=== PATIENT | female | born 1965 | race Caucasian/White ===

== ENCOUNTER 2017-01-14 18:49 | Inpatient (IN) | payer BC, MEDICAID ==
[2017-01-14 22:51] LABS: URINE BLOOD (Dip) POC Trace-intact (NEGATIVE); URINE GLUCOSE (Dip) POC Negative (NEGATIVE); URINE KETONES (Dip) POC Negative (NEGATIVE); URINE LEUKOCYTE EST (Dip) POC Trace (NEGATIVE); URINE NITRITE (Dip) POC Negative (NEGATIVE); URINE TOTAL PROTEIN POC Negative (NEGATIVE)
[2017-01-14 23:06] LABS: ABNORMAL IP MESSAGE 1; HEMATOCRIT 25.2 % (37.0-47.0); HEMOGLOBIN 8.1 g/dl (12.0-16.0); MEAN CORPUSCULAR HEMOGLOBIN 29.5 pg (29.0-33.0); MEAN CORPUSCULAR HGB CONC 32.1 g/dl (32.0-37.0); MEAN CORPUSCULAR VOLUME 91.6 fl (82.0-101.0); MEAN PLATELET VOLUME 11.9 fl (7.4-10.4); PLATELET COUNT 699 10^3/UL (140-415); RED BLOOD COUNT 2.75 10^6/ul (4.20-5.40)
[2017-01-14 23:06] LABS: WHITE BLOOD COUNT 12.3 10^3/ul (4.8-10.8)
[2017-01-14 23:25] LABS: ADD MAN DIFF? YES; POSITIVE DIFF @See below
[2017-01-14 23:29] LABS: INR 1.02; PROTIME 13.5 Sec (11.9-14.9); PT RATIO 1.1
[2017-01-14 23:30] LABS: ALANINE AMINOTRANSFERASE 44 IU/L (13-69); ALBUMIN 3.3 g/dl (3.3-4.9); ALBUMIN/GLOBULIN RATIO 0.89; ALKALINE PHOSPHATASE 185 IU/L (42-121); ANION GAP 13 (8-16); ASPARTATE AMINO TRANSFERASE 47 IU/L (15-46); BLOOD UREA NITROGEN 42 mg/dl (7-20); CARBON DIOXIDE 33 mmol/L (21-31); CHLORIDE 99 mmol/L (97-110); CREATININE 3.15 mg/dl (0.44-1.00); GLUCOSE 101 mg/dl (70-220); PARTIAL THROMBOPLASTIN TIME 23.3 Sec (25.0-35.0); POTASSIUM 3.7 mmol/L (3.5-5.1); SODIUM 141 mmol/L (135-144)
[2017-01-14 23:32] LABS: BENZODIAZEPINES Negative (NEGATIVE)
[2017-01-14 23:35] LABS: ETHANOL < 10.0 mg/dl
[2017-01-14 23:38] LABS: AMPHETAMINE/METHAMPHETAMINE Negative (NEGATIVE)
[2017-01-14 23:41] LABS: CALCIUM 14.8 mg/dl (8.4-10.2)
[2017-01-14 23:42] LABS: BARBITURATES Negative (NEGATIVE); CANNABINOIDS Negative (NEGATIVE); COCAINE Negative (NEGATIVE)
[2017-01-14] MEDS: SOD CHLORIDE 0.9% 1,000 ML IV (23:43)
[2017-01-14 23:51] LABS: TROPONIN-I < 0.012 ng/ml (0.00-0.12)
[2017-01-14 23:58] LABS: OPIATES Positive (NEGATIVE)
[2017-01-15] MEDS: PAMIDRONATE 60 MG in SOD CHLORIDE 0.9% 500 ML IV (00:47)
[2017-01-15 00:52] LABS: ANISOCYTOSIS 2+ (0-0); BAND NEUTROPHILS #M 0.1 10^3/ul (0.0-0.6); BAND NEUTROPHILS % (M) 1 % (0-4); EOSINOPHILS % (M) 4 % (0-7); LYMPHOCYTES #M 1.2 10^3/ul (0.8-2.9); LYMPHOCYTES % (M) 10 % (15-51); MONOCYTE #M 1.1 10^3/ul (0.3-0.9); MONOCYTES % (M) 9 % (0-11); PLASMA CELLS #M 0.1 10^3/ul (0.0-0.0); PLASMAC%(M) 1 % (0); PLATELET ESTIMATE INCREASED; POIKILOCYTOSIS 1+ (0-0); POLYCHROMASIA 3+ (0-0); PROMYELOCYTES #M 0.1 10^3/ul (0-0); PROMYELOCYTES % (M) 1 % (0-0); SEG NEUT #M 9.2 10^3/ul (1.7-7.5); SEGMENTED NEUTROPHILS (M) % 75 % (39-77); SMUDGE%M 9 % (0-0)
[2017-01-15] MEDS: HYDROCODONE/APAP (10/325) TAB PO (02:26)
[2017-01-15] MEDS ORDERED: ALBUTEROL/IPRATROPIUM (NEB) 3 ML AMP HHN (03:30)
[2017-01-15] MEDS ORDERED: ACETAMINOPHEN 325 MG TAB PO (03:30)
[2017-01-15] MEDS ORDERED: HYDROmorphONE 1 MG/ML SYG IV (03:30)
[2017-01-15] MEDS ORDERED: HYDROCODONE/APAP (10/325) TAB PO (03:30)
[2017-01-15] MEDS ORDERED: NACL 0.9% 3 ML SYG IV (03:30)
[2017-01-15] MEDS: HYDROmorphONE 1 MG/ML SYG IV ×4 (04:10→17:29)
[2017-01-15] MEDS: SOD CHLORIDE 0.9% 1,000 ML IV ×4 (04:17→22:03)
[2017-01-15] MEDS: GABAPENTIN 100 MG CAP PO ×5 (05:35→21:34)
[2017-01-15 07:50] LABS: ADD UMIC YES; UR ASCORBIC ACID NEGATIVE (NEGATIVE); UR BILIRUBIN (Dip) NEGATIVE (NEGATIVE); UR BLOOD (Dip) NEGATIVE (NEGATIVE); UR CLARITY CLEAR (CLEAR); UR COLOR STRAW (YELLOW); UR GLUCOSE (Dip) NEGATIVE (NEGATIVE); UR KETONES (Dip) NEGATIVE (NEGATIVE); UR LEUKOCYTE ESTERASE (Dip) TRACE Leu/ul (NEGATIVE); UR NITRITE (Dip) NEGATIVE (NEGATIVE); UR RBC 1 /HPF (0-5); UR SPECIFIC GRAVITY (Dip) 1.005 (1.003-1.030); UR TOTAL PROTEIN (Dip) NEGATIVE (NEGATIVE); UR UROBILINOGEN (Dip) NEGATIVE (NEGATIVE); UR WBC 12 /HPF (0-5)
[2017-01-15] MEDS: DULOXETINE 30 MG CAP DR PO ×2 (08:38→21:33)
[2017-01-15] MEDS: MODAFINIL 200 MG TAB PO (08:39)
[2017-01-15] MEDS: INDOMETHACIN 50 MG PO ×2 (08:39→21:33)
[2017-01-15] MEDS: BACLOFEN 10 MG TAB PO ×4 (08:40→21:34)
[2017-01-15] MEDS ORDERED: CAPECITABINE 500 MG TAB PO (09:00)
[2017-01-15 09:40] LABS: ADD MAN DIFF? NO
[2017-01-15] MEDS: morphine (ER) 15 MG TAB PO ×3 (09:45→21:00)
[2017-01-15 09:50] LABS: ABNORMAL IP MESSAGE 1; BASOPHILS % 0.3 % (0.0-2.0); EOSINOPHILS # 0.6 10^3/ul (0.0-0.5); EOSINOPHILS % 5.1 % (0.0-7.0); HEMATOCRIT 24.1 % (37.0-47.0); HEMOGLOBIN 7.5 g/dl (12.0-16.0); LYMPHOCYTES # 2.4 10^3/ul (0.8-2.9); LYMPHOCYTES % 19.1 % (15.0-51.0); MEAN CORPUSCULAR HGB CONC 31.1 g/dl (32.0-37.0); MEAN CORPUSCULAR VOLUME 93.1 fl (82.0-101.0); MEAN PLATELET VOLUME 12.2 fl (7.4-10.4); MONOCYTE # 1.5 10^3/ul (0.3-0.9); MONOCYTES % 12.1 % (0.0-11.0); NEUTROPHIL # 7.7 10^3/ul (1.6-7.5); NEUTROPHILS % 61.6 % (39.0-77.0); PLATELET COUNT 599 10^3/UL (140-415); RED BLOOD COUNT 2.59 10^6/ul (4.20-5.40); RED CELL DISTRIBUTION WIDTH 16.2 % (11.5-14.5)
[2017-01-15 09:50] LABS: WHITE BLOOD COUNT 12.5 10^3/ul (4.8-10.8)
[2017-01-15 10:12] LABS: ALANINE AMINOTRANSFERASE 40 IU/L (13-69); ALBUMIN/GLOBULIN RATIO 0.85; ALKALINE PHOSPHATASE 167 IU/L (42-121); ANION GAP 13 (8-16); ASPARTATE AMINO TRANSFERASE 42 IU/L (15-46); BLOOD UREA NITROGEN 38 mg/dl (7-20); CARBON DIOXIDE 29 mmol/L (21-31); CHLORIDE 104 mmol/L (97-110); CREATININE 2.76 mg/dl (0.44-1.00); GLUCOSE 96 mg/dl (70-220); MAGNESIUM 1.7 mg/dl (1.7-2.5); POTASSIUM 3.6 mmol/L (3.5-5.1); SODIUM 142 mmol/L (135-144); TOTAL PROTEIN 6.5 g/dl (6.1-8.1)
[2017-01-15 10:17] LABS: CALCIUM 13.4 mg/dl (8.4-10.2)
[2017-01-15] MEDS: EXEMESTANE 25 MG TAB PO (11:15)
[2017-01-15 16:06] LABS: IMMEDIATE SPIN CROSSMATCH 1 2
[2017-01-15] MEDS: traZODone 50 MG TAB PO (21:34)
[2017-01-15] MEDS: ONDANSETRON 4 MG INJ IV (22:02)
[2017-01-16] MEDS: METOCLOPRAMIDE 10 MG INJ IV ×3 (00:55→23:25)
[2017-01-16] MEDS: GABAPENTIN 100 MG CAP PO ×6 (01:00→20:58)
[2017-01-16] MEDS: DIAZEPAM 5 MG TAB PO (01:20)
[2017-01-16] MEDS: LORAZEPAM 2 MG INJ IV (01:55)
[2017-01-16] MEDS ORDERED: ONDANSETRON 4 MG INJ IV (03:30)
[2017-01-16] MEDS: SOD CHLORIDE 0.9% 1,000 ML IV ×5 (05:34→20:53)
[2017-01-16 09:56] LABS: ADD MAN DIFF? NO
[2017-01-16 09:58] LABS: BASOPHILS % 0.3 % (0.0-2.0); EOSINOPHILS # 0.3 10^3/ul (0.0-0.5); EOSINOPHILS % 3.9 % (0.0-7.0); HEMATOCRIT 27.9 % (37.0-47.0); LYMPHOCYTES # 1.1 10^3/ul (0.8-2.9); LYMPHOCYTES % 13.1 % (15.0-51.0); MEAN CORPUSCULAR HEMOGLOBIN 29.8 pg (29.0-33.0); MEAN CORPUSCULAR HGB CONC 32.3 g/dl (32.0-37.0); MEAN CORPUSCULAR VOLUME 92.4 fl (82.0-101.0); MONOCYTE # 0.9 10^3/ul (0.3-0.9); MONOCYTES % 10.3 % (0.0-11.0); NEUTROPHIL # 6.1 10^3/ul (1.6-7.5); NEUTROPHILS % 70.1 % (39.0-77.0); NUCLEATED RED BLOOD CELLS% 0.2 /100WBC (0.0-0.0); PLATELET COUNT 600 10^3/UL (140-415); RED BLOOD COUNT 3.02 10^6/ul (4.20-5.40); RED CELL DISTRIBUTION WIDTH 16.1 % (11.5-14.5)
[2017-01-16 09:58] LABS: WHITE BLOOD COUNT 8.7 10^3/ul (4.8-10.8)
[2017-01-16] MEDS: BACLOFEN 10 MG TAB PO ×4 (10:14→20:57)
[2017-01-16] MEDS: DULOXETINE 30 MG CAP DR PO ×2 (10:14→20:56)
[2017-01-16] MEDS: INDOMETHACIN 50 MG PO ×2 (10:14→20:57)
[2017-01-16] MEDS: morphine (ER) 15 MG TAB PO ×3 (10:15→20:57)
[2017-01-16] MEDS: MODAFINIL 200 MG TAB PO (10:16)
[2017-01-16 10:19] LABS: ANION GAP 9 (8-16); BLOOD UREA NITROGEN 33 mg/dl (7-20); CALCIUM 12.7 mg/dl (8.4-10.2); CARBON DIOXIDE 29 mmol/L (21-31); CHLORIDE 107 mmol/L (97-110); CREATININE 2.18 mg/dl (0.44-1.00); GLUCOSE 89 mg/dl (70-220); MAGNESIUM 1.7 mg/dl (1.7-2.5); PHOSPHORUS 3.7 mg/dl (2.5-4.9); POTASSIUM 3.7 mmol/L (3.5-5.1); SODIUM 141 mmol/L (135-144)
[2017-01-16] MEDS: EXEMESTANE 25 MG TAB PO (10:41)
[2017-01-16 14:44] LABS: AADO2 Arterial 69.5 mmHg (7.0-24.0); Allen Test ACCEPTAB; Arterial COHb 0.2 % (0.0-3.0); Arterial Fraction of Oxyhgb 96.8 % (93.0-99.0); Arterial HCO3 26.8 mmol/L (22.0-26.0); Arterial MetHb 0 % (0.0-1.5); Arterial Total Hemglobin 11.3 g/dl (12.0-18.0); Arterial pCO2 42.9 mmhg (35-45); MODE NASAL CANNULA; Site Right Radial
[2017-01-16] MEDS: ONDANSETRON 4 MG INJ IV (17:11)
[2017-01-16] MEDS: HYDROmorphONE 0.5 MG/0.5 ML SYG IV (17:11)
[2017-01-16] MEDS: HYDROmorphONE 1 MG/ML SYG IV ×3 (19:14→23:25)
[2017-01-16] MEDS: traZODone 50 MG TAB PO (20:56)
[2017-01-17] MEDS: GABAPENTIN 100 MG CAP PO ×6 (01:00→21:29)
[2017-01-17] MEDS: HYDROmorphONE 1 MG/ML SYG IV ×5 (01:25→11:40)
[2017-01-17] MEDS: SOD CHLORIDE 0.9% 1,000 ML IV ×3 (01:50→12:00)
[2017-01-17] MEDS: METOCLOPRAMIDE 10 MG INJ IV ×2 (03:47→21:37)
[2017-01-17] MEDS: morphine (ER) 15 MG TAB PO ×4 (09:00→21:28)
[2017-01-17] MEDS: INDOMETHACIN 50 MG PO ×2 (09:00→21:30)
[2017-01-17] MEDS: MODAFINIL 200 MG TAB PO (09:09)
[2017-01-17] MEDS: BACLOFEN 10 MG TAB PO ×4 (09:10→21:29)
[2017-01-17] MEDS: EXEMESTANE 25 MG TAB PO (09:14)
[2017-01-17] MEDS: DULOXETINE 30 MG CAP DR PO ×2 (09:14→21:29)
[2017-01-17] MEDS ORDERED: HYDROmorphONE 1 MG/ML SYG (11:34)
[2017-01-17] MEDS: hydrALAzine 20 MG INJ IV (11:40)
[2017-01-17] MEDS: HYDROmorphONE 0.2 MG/ML PCA IV ×2 (12:43→18:47)
[2017-01-17] MEDS: traZODone 50 MG TAB PO (21:36)
[2017-01-17] MEDS: ONDANSETRON 4 MG INJ IV (23:34)
[2017-01-18] MEDS: SOD CHLORIDE 0.9% 1,000 ML IV ×5 (02:09→23:13)
[2017-01-18] MEDS: GABAPENTIN 100 MG CAP PO ×6 (02:09→20:58)
[2017-01-18] MEDS: HYDROmorphONE 0.2 MG/ML PCA IV ×3 (03:14→19:45)
[2017-01-18] MEDS: ONDANSETRON 4 MG INJ IV ×3 (04:35→21:15)
[2017-01-18] MEDS: METOCLOPRAMIDE 10 MG INJ IV ×3 (06:50→23:17)
[2017-01-18] MEDS: morphine (ER) 15 MG TAB PO ×3 (09:00→20:59)
[2017-01-18] MEDS: BACLOFEN 10 MG TAB PO ×4 (09:26→20:58)
[2017-01-18] MEDS: DULOXETINE 30 MG CAP DR PO ×2 (09:26→20:58)
[2017-01-18] MEDS: MODAFINIL 200 MG TAB PO (09:26)
[2017-01-18] MEDS: INDOMETHACIN 50 MG PO ×2 (09:26→20:58)
[2017-01-18] MEDS: EXEMESTANE 25 MG TAB PO (09:29)
[2017-01-18 10:05] LABS: ABNORMAL IP MESSAGE 1; HEMATOCRIT 28.3 % (37.0-47.0); HEMOGLOBIN 9.1 g/dl (12.0-16.0); MEAN CORPUSCULAR HEMOGLOBIN 29.8 pg (29.0-33.0); MEAN CORPUSCULAR HGB CONC 32.2 g/dl (32.0-37.0); MEAN CORPUSCULAR VOLUME 92.8 fl (82.0-101.0); MEAN PLATELET VOLUME 11.6 fl (7.4-10.4); PLATELET COUNT 590 10^3/UL (140-415); RED BLOOD COUNT 3.05 10^6/ul (4.20-5.40); RED CELL DISTRIBUTION WIDTH 16.1 % (11.5-14.5)
[2017-01-18 10:05] LABS: WHITE BLOOD COUNT 14.3 10^3/ul (4.8-10.8)
[2017-01-18 10:10] LABS: POSITIVE DIFF @See below
[2017-01-18 10:11] LABS: ADD MAN DIFF? YES
[2017-01-18 10:28] LABS: ANION GAP 8 (8-16); BLOOD UREA NITROGEN 16 mg/dl (7-20); CALCIUM 10.1 mg/dl (8.4-10.2); CARBON DIOXIDE 25 mmol/L (21-31); CHLORIDE 111 mmol/L (97-110); CREATININE 1.34 mg/dl (0.44-1.00); GLUCOSE 92 mg/dl (70-220); POTASSIUM 3.3 mmol/L (3.5-5.1); SODIUM 141 mmol/L (135-144)
[2017-01-18 12:38] LABS: ANISOCYTOSIS 1+ (0-0); BAND NEUTROPHILS #M 0.4 10^3/ul (0.0-0.6); BAND NEUTROPHILS % (M) 3 % (0-4); BASOPHIL #M 0.1 10^3/ul (0.0-0.0); BASOPHILS % (M) 1 % (0-2); EOSINOPHILS % (M) 5 % (0-7); GIANT THROMBO% (M) 2 % (0-0); LYMPHOCYTES #M 2.1 10^3/ul (0.8-2.9); LYMPHOCYTES % (M) 15 % (15-51); MONOCYTE #M 1.8 10^3/ul (0.3-0.9); MONOCYTES % (M) 13 % (0-11); MYELOCYTES #M 0.1 10^3/ul (0.0-0.0); MYELOCYTES % (M) 1 % (0-0); PLATELET ESTIMATE INCREASED; POIKILOCYTOSIS 2+ (0-0); POLYCHROMASIA 3+ (0-0); REACTIVE LYMPHOCYTES #M 0.5 10^3/ul (0.0-0.0); REACTIVE LYMPHOCYTES% (M) 4 % (0-0); SEG NEUT #M 8.4 10^3/ul (1.7-7.5); SEGMENTED NEUTROPHILS (M) % 58 % (39-77); SMUDGE%M 6 % (0-0)
[2017-01-18] MEDS: POTASSIUM CHLORIDE (SR) 20 MEQ TAB PO (14:51)
[2017-01-18] MEDS: DEXAMETHASONE 4 MG TAB PO (20:58)
[2017-01-18] MEDS: traZODone 50 MG TAB PO ×2 (20:59→21:00)
[2017-01-19] MEDS: METOCLOPRAMIDE 10 MG INJ IV ×4 (00:50→16:58)
[2017-01-19] MEDS: GABAPENTIN 100 MG CAP PO ×6 (00:50→21:00)
[2017-01-19] MEDS: ONDANSETRON 4 MG INJ IV ×2 (02:49→14:29)
[2017-01-19 04:53] LABS: ADD MAN DIFF? NO
[2017-01-19 05:03] LABS: WHITE BLOOD COUNT 11.8 10^3/ul (4.8-10.8)
[2017-01-19 05:04] LABS: ABNORMAL IP MESSAGE 1; BASOPHILS % 0.2 % (0.0-2.0); EOSINOPHILS # 0.2 10^3/ul (0.0-0.5); EOSINOPHILS % 1.3 % (0.0-7.0); HEMATOCRIT 24.5 % (37.0-47.0); HEMOGLOBIN 7.8 g/dl (12.0-16.0); LYMPHOCYTES # 1.3 10^3/ul (0.8-2.9); LYMPHOCYTES % 11.3 % (15.0-51.0); MEAN CORPUSCULAR HEMOGLOBIN 29.5 pg (29.0-33.0); MEAN CORPUSCULAR HGB CONC 31.8 g/dl (32.0-37.0); MEAN CORPUSCULAR VOLUME 92.8 fl (82.0-101.0); MEAN PLATELET VOLUME 11.3 fl (7.4-10.4); MONOCYTE # 1.1 10^3/ul (0.3-0.9); MONOCYTES % 9.1 % (0.0-11.0); NEUTROPHIL # 8.5 10^3/ul (1.6-7.5); NEUTROPHILS % 72.1 % (39.0-77.0); PLATELET COUNT 493 10^3/UL (140-415); RED BLOOD COUNT 2.64 10^6/ul (4.20-5.40)
[2017-01-19 05:13] LABS: POSITIVE DIFF @See below
[2017-01-19 05:32] LABS: ANION GAP 8 (8-16); BLOOD UREA NITROGEN 12 mg/dl (7-20); CALCIUM 8.3 mg/dl (8.4-10.2); CARBON DIOXIDE 22 mmol/L (21-31); CHLORIDE 116 mmol/L (97-110); CREATININE 1.08 mg/dl (0.44-1.00); GLUCOSE 96 mg/dl (70-220); SODIUM 143 mmol/L (135-144)
[2017-01-19] MEDS: SOD CHLORIDE 0.9% 1,000 ML IV (06:17)
[2017-01-19] MEDS: DULOXETINE 30 MG CAP DR PO ×2 (09:00→21:00)
[2017-01-19] MEDS: INDOMETHACIN 50 MG PO ×2 (09:00→21:00)
[2017-01-19] MEDS: morphine (ER) 15 MG TAB PO ×3 (09:00→21:00)
[2017-01-19] MEDS: MODAFINIL 200 MG TAB PO (09:00)
[2017-01-19] MEDS: DEXAMETHASONE 4 MG TAB PO ×2 (09:00→21:00)
[2017-01-19] MEDS: BACLOFEN 10 MG TAB PO ×4 (09:00→21:00)
[2017-01-19] MEDS: EXEMESTANE 25 MG TAB PO (09:00)
[2017-01-19] MEDS: POTASSIUM CHLORIDE (SR) 20 MEQ TAB PO (10:09)
[2017-01-19 11:00] LABS: MAGNESIUM 1.5 mg/dl (1.7-2.5)
[2017-01-19] MEDS: NS + KCL 20 MEQ 1,000 ML IV (13:17)
[2017-01-19] MEDS ORDERED: ONDANSETRON INJ 8 MG in SOD CHLORIDE 0.9% 50 ML IV (14:30)
[2017-01-19 14:51] LABS: TROPONIN-I < 0.012 ng/ml (0.00-0.12)
[2017-01-19] MEDS: HYDROmorphONE 0.2 MG/ML PCA IV (16:15)
[2017-01-19 16:48] LABS: IMMEDIATE SPIN CROSSMATCH 1 1
[2017-01-19] MEDS: ONDANSETRON INJ 8 MG in DEXTROSE 5% 50 ML IV (17:08)
[2017-01-19] MEDS: LORAZEPAM 2 MG INJ IV (18:24)
[2017-01-19] MEDS: traZODone 50 MG TAB PO (21:00)
[2017-01-19 22:16] LABS: HEMATOCRIT 33.2 % (37.0-47.0); HEMOGLOBIN 10.8 g/dl (12.0-16.0)
[2017-01-20] MEDS: METOCLOPRAMIDE 10 MG INJ IV ×5 (00:14→21:07)
[2017-01-20] MEDS: NS + KCL 20 MEQ 1,000 ML IV (00:14)
[2017-01-20] MEDS: GABAPENTIN 100 MG CAP PO ×6 (00:15→21:06)
[2017-01-20] MEDS: traZODone 50 MG TAB PO (00:22)
[2017-01-20 05:51] LABS: ABNORMAL IP MESSAGE 1; HEMATOCRIT 34.6 % (37.0-47.0); HEMOGLOBIN 11.1 g/dl (12.0-16.0); MEAN CORPUSCULAR HEMOGLOBIN 29.1 pg (29.0-33.0); MEAN CORPUSCULAR HGB CONC 32.1 g/dl (32.0-37.0); MEAN CORPUSCULAR VOLUME 90.8 fl (82.0-101.0); MEAN PLATELET VOLUME 11.8 fl (7.4-10.4); NUCLEATED RED BLOOD CELLS% 0.1 /100WBC (0.0-0.0); PLATELET COUNT 610 10^3/UL (140-415); RED BLOOD COUNT 3.81 10^6/ul (4.20-5.40); RED CELL DISTRIBUTION WIDTH 16.7 % (11.5-14.5)
[2017-01-20 06:03] LABS: ADD MAN DIFF? YES; POSITIVE DIFF @See below
[2017-01-20] MEDS: HYDROmorphONE 0.2 MG/ML PCA IV ×2 (06:12→18:58)
[2017-01-20 06:28] LABS: ANION GAP 16 (8-16); BLOOD UREA NITROGEN 11 mg/dl (7-20); CARBON DIOXIDE 21 mmol/L (21-31); CHLORIDE 112 mmol/L (97-110); CREATININE 1.24 mg/dl (0.44-1.00); GLUCOSE 171 mg/dl (70-220); POTASSIUM 3.5 mmol/L (3.5-5.1); SODIUM 145 mmol/L (135-144)
[2017-01-20 06:29] LABS: PHOSPHORUS 2.3 mg/dl (2.5-4.9)
[2017-01-20 06:29] LABS: MAGNESIUM 1.7 mg/dl (1.7-2.5)
[2017-01-20 08:38] LABS: ANISOCYTOSIS 1+ (0-0); BAND NEUTROPHILS #M 0.4 10^3/ul (0.0-0.6); BAND NEUTROPHILS % (M) 3 % (0-4); BURR CELLS 1+ (0-0); EOSINOPHILS % (M) 2 % (0-7); GIANT THROMBO% (M) 1 % (0-0); LYMPHOCYTES #M 3.1 10^3/ul (0.8-2.9); LYMPHOCYTES % (M) 21 % (15-51); MICROCYTOSIS 1+ (0-0); MONOCYTE #M 0.9 10^3/ul (0.3-0.9); MONOCYTES % (M) 6 % (0-11); MYELOCYTES #M 0.3 10^3/ul (0.0-0.0); MYELOCYTES % (M) 2 % (0-0); PLATELET ESTIMATE INCREASED; POIKILOCYTOSIS 1+ (0-0); POLYCHROMASIA 1+ (0-0); REACTIVE LYMPHOCYTES #M 0.1 10^3/ul (0.0-0.0); REACTIVE LYMPHOCYTES% (M) 1 % (0-0); SEG NEUT #M 9.8 10^3/ul (1.7-7.5); SEGMENTED NEUTROPHILS (M) % 65 % (39-77); SMUDGE%M 11 % (0-0); SPHEROCYTES 1+ (0-0)
[2017-01-20] MEDS: INDOMETHACIN 50 MG PO (08:41)
[2017-01-20] MEDS: DEXAMETHASONE 4 MG TAB PO ×2 (08:41→21:07)
[2017-01-20] MEDS: BACLOFEN 10 MG TAB PO ×4 (08:41→21:07)
[2017-01-20] MEDS: DULOXETINE 30 MG CAP DR PO ×2 (08:41→21:06)
[2017-01-20] MEDS: ONDANSETRON 4 MG INJ IV ×2 (08:42→17:40)
[2017-01-20] MEDS: MODAFINIL 200 MG TAB PO (08:42)
[2017-01-20] MEDS: EXEMESTANE 25 MG TAB PO (08:46)
[2017-01-20] MEDS: hydrALAzine 20 MG INJ IV (08:48)
[2017-01-20] MEDS: morphine (ER) 15 MG TAB PO ×3 (08:50→21:00)
[2017-01-20] MEDS: LORAZEPAM 2 MG INJ IV ×2 (09:11→17:41)
[2017-01-20] MEDS ORDERED: ZOLPIDEM 5 MG TAB PO (10:30)
[2017-01-20] MEDS: FUROSEMIDE 20 MG INJ IV (11:05)
[2017-01-20] MEDS: NEUTRA-PHOS 250 MG PACKET PO (12:36)
[2017-01-21] MEDS: ONDANSETRON 4 MG INJ IV ×3 (00:06→21:52)
[2017-01-21] MEDS: LORAZEPAM 2 MG INJ IV ×2 (00:06→11:39)
[2017-01-21] MEDS ORDERED: DIAZEPAM 5 MG/ML SYG IV (01:00)
[2017-01-21] MEDS: DIAZEPAM 5 MG TAB PO (01:10)
[2017-01-21] MEDS: GABAPENTIN 100 MG CAP PO ×6 (01:10→20:26)
[2017-01-21] MEDS: METOCLOPRAMIDE 10 MG INJ IV ×4 (03:19→23:49)
[2017-01-21 05:44] LABS: ADD MAN DIFF? NO
[2017-01-21 05:49] LABS: WHITE BLOOD COUNT 15.4 10^3/ul (4.8-10.8)
[2017-01-21 05:49] LABS: BASOPHIL # 0.1 10^3/ul (0.0-0.1); BASOPHILS % 0.3 % (0.0-2.0); EOSINOPHILS # 0.1 10^3/ul (0.0-0.5); EOSINOPHILS % 0.6 % (0.0-7.0); HEMATOCRIT 30.5 % (37.0-47.0); HEMOGLOBIN 10.1 g/dl (12.0-16.0); LYMPHOCYTES # 1.3 10^3/ul (0.8-2.9); LYMPHOCYTES % 8.3 % (15.0-51.0); MEAN CORPUSCULAR HEMOGLOBIN 29.2 pg (29.0-33.0); MEAN CORPUSCULAR HGB CONC 33.1 g/dl (32.0-37.0); MEAN CORPUSCULAR VOLUME 88.2 fl (82.0-101.0); MEAN PLATELET VOLUME 11.6 fl (7.4-10.4); MONOCYTE # 0.9 10^3/ul (0.3-0.9); NEUTROPHIL # 12.4 10^3/ul (1.6-7.5); NEUTROPHILS % 80.5 % (39.0-77.0); PLATELET COUNT 527 10^3/UL (140-415); RED BLOOD COUNT 3.46 10^6/ul (4.20-5.40); RED CELL DISTRIBUTION WIDTH 16.8 % (11.5-14.5)
[2017-01-21 06:21] LABS: ANION GAP 12 (8-16); BLOOD UREA NITROGEN 11 mg/dl (7-20); CALCIUM 9.7 mg/dl (8.4-10.2); CARBON DIOXIDE 27 mmol/L (21-31); CHLORIDE 108 mmol/L (97-110); CREATININE 1.07 mg/dl (0.44-1.00); GLUCOSE 108 mg/dl (70-220); POTASSIUM 3.6 mmol/L (3.5-5.1); SODIUM 143 mmol/L (135-144)
[2017-01-21 06:24] LABS: MAGNESIUM 1.8 mg/dl (1.7-2.5)
[2017-01-21 06:24] LABS: PHOSPHORUS 2.9 mg/dl (2.5-4.9)
[2017-01-21] MEDS ORDERED: METHYLPREDNISOLONE 40 MG INJ IV (08:00)
[2017-01-21] MEDS ORDERED: DIPHENHYDRAMINE 50 MG INJ IV (08:00)
[2017-01-21] MEDS ORDERED: MEPERIDINE 50 MG INJ IV (08:00)
[2017-01-21] MEDS: morphine (ER) 15 MG TAB PO ×3 (09:00→20:26)
[2017-01-21] MEDS: DEXAMETHASONE 4 MG TAB PO ×2 (09:40→20:26)
[2017-01-21] MEDS: BACLOFEN 10 MG TAB PO ×4 (09:41→20:26)
[2017-01-21] MEDS: DULOXETINE 30 MG CAP DR PO ×2 (09:41→20:25)
[2017-01-21] MEDS: EXEMESTANE 25 MG TAB PO (09:44)
[2017-01-21] MEDS: FUROSEMIDE 20 MG TAB PO (09:49)
[2017-01-21] MEDS: MODAFINIL 200 MG TAB PO (09:49)
[2017-01-21] MEDS: HYDROCODONE/APAP (10/325) TAB PO (09:52)
[2017-01-21] MEDS: HYDROmorphONE 0.5 MG/0.5 ML SYG IM (09:56)
[2017-01-21] MEDS: PROCHLORPERAZINE 10 MG INJ IM (10:00)
[2017-01-21] MEDS: OXYCODONE/ACETAMINOPHEN (10/325) TAB PO (10:00)
[2017-01-21] MEDS ORDERED: GUAIFENESIN/DM 5ML CUP PO (10:00)
[2017-01-21] MEDS: HEPARIN 1000 UNITS/ML 10 ML INJ (11:26)
[2017-01-21] MEDS: HEPARIN 1000 UNITS/ML 10 ML INJ CATHETER (11:26)
[2017-01-21] MEDS: HYDROmorphONE 0.2 MG/ML PCA IV ×2 (12:50→22:32)
[2017-01-21] MEDS: SOD CHLORIDE 0.9% 1,000 ML IV ×2 (15:10→19:00)
[2017-01-21] MEDS: DIPHENHYDRAMINE IV (15:10)
[2017-01-21] MEDS: [UNRECOGNIZED DRUG - OTHER] IV (15:10)
[2017-01-21] MEDS: ONDANSETRON IV (15:10)
[2017-01-21] MEDS: DEXAMETHASONE IV (15:10)
[2017-01-21] MEDS: DOCETAXEL IV (16:09)
[2017-01-21] MEDS: SOD CHLORIDE 0.9% IV (16:09)
[2017-01-21] MEDS: traZODone 50 MG TAB PO (23:49)
[2017-01-22] MEDS: GABAPENTIN 100 MG CAP PO ×6 (01:00→21:08)
[2017-01-22] MEDS: SOD CHLORIDE 0.9% 1,000 ML IV (05:00)
[2017-01-22] MEDS: METOCLOPRAMIDE 10 MG INJ IV ×6 (05:32→21:08)
[2017-01-22] MEDS: LORAZEPAM 2 MG INJ IV ×5 (05:42→21:54)
[2017-01-22 06:11] LABS: ADD MAN DIFF? NO
[2017-01-22 06:35] LABS: WHITE BLOOD COUNT 10.5 10^3/ul (4.8-10.8)
[2017-01-22 06:35] LABS: BASOPHILS % 0.2 % (0.0-2.0); LYMPHOCYTES # 2.1 10^3/ul (0.8-2.9); LYMPHOCYTES % 20.2 % (15.0-51.0); MEAN CORPUSCULAR HEMOGLOBIN 29.2 pg (29.0-33.0); MEAN CORPUSCULAR HGB CONC 33.3 g/dl (32.0-37.0); MEAN CORPUSCULAR VOLUME 87.7 fl (82.0-101.0); MEAN PLATELET VOLUME 12.5 fl (7.4-10.4); MONOCYTE # 0.6 10^3/ul (0.3-0.9); MONOCYTES % 5.6 % (0.0-11.0); NEUTROPHIL # 7.2 10^3/ul (1.6-7.5); PLATELET COUNT 494 10^3/UL (140-415); RED BLOOD COUNT 3.42 10^6/ul (4.20-5.40); RED CELL DISTRIBUTION WIDTH 16.7 % (11.5-14.5)
[2017-01-22 06:51] LABS: ANION GAP 12 (8-16); BLOOD UREA NITROGEN 14 mg/dl (7-20); CALCIUM 8.9 mg/dl (8.4-10.2); CARBON DIOXIDE 27 mmol/L (21-31); CHLORIDE 107 mmol/L (97-110); CREATININE 0.97 mg/dl (0.44-1.00); GLUCOSE 121 mg/dl (70-220); POTASSIUM 3.5 mmol/L (3.5-5.1); SODIUM 142 mmol/L (135-144)
[2017-01-22] MEDS: HYDROmorphONE 0.2 MG/ML PCA IV ×3 (08:08→19:15)
[2017-01-22] MEDS: ONDANSETRON 4 MG INJ IV ×3 (08:12→21:55)
[2017-01-22] MEDS: DULOXETINE 30 MG CAP DR PO ×2 (08:14→21:08)
[2017-01-22] MEDS: BACLOFEN 10 MG TAB PO ×4 (08:15→21:09)
[2017-01-22] MEDS: morphine (ER) 15 MG TAB PO ×3 (08:15→21:00)
[2017-01-22] MEDS: DEXAMETHASONE 4 MG TAB PO ×2 (08:15→21:09)
[2017-01-22] MEDS: EXEMESTANE 25 MG TAB PO (08:17)
[2017-01-22] MEDS: MODAFINIL 200 MG TAB PO (08:20)
[2017-01-22 08:24] LABS: PHOSPHORUS 2.8 mg/dl (2.5-4.9)
[2017-01-22 08:24] LABS: MAGNESIUM 1.8 mg/dl (1.7-2.5)
[2017-01-22] MEDS: FUROSEMIDE 20 MG INJ IV ×2 (09:37→18:09)
[2017-01-22] MEDS ORDERED: FUROSEMIDE 20 MG TAB PO (18:00)
[2017-01-22] MEDS: traZODone 50 MG TAB PO (21:00)
[2017-01-23] MEDS: GABAPENTIN 100 MG CAP PO ×6 (00:45→20:59)
[2017-01-23] MEDS: traZODone 50 MG TAB PO ×2 (00:46→21:00)
[2017-01-23] MEDS: METOCLOPRAMIDE 10 MG INJ IV ×8 (00:46→20:59)
[2017-01-23] MEDS: HYDROmorphONE 0.2 MG/ML PCA IV ×4 (01:14→22:00)
[2017-01-23] MEDS: LORAZEPAM 2 MG INJ IV ×5 (01:17→20:59)
[2017-01-23] MEDS: ONDANSETRON 4 MG INJ IV ×4 (01:17→17:32)
[2017-01-23 05:18] LABS: ADD MAN DIFF? NO
[2017-01-23 05:30] LABS: BASOPHILS % 0.2 % (0.0-2.0); EOSINOPHILS % 0.3 % (0.0-7.0); HEMATOCRIT 31.8 % (37.0-47.0); HEMOGLOBIN 10.4 g/dl (12.0-16.0); LYMPHOCYTES % 15.7 % (15.0-51.0); MEAN CORPUSCULAR HEMOGLOBIN 29.4 pg (29.0-33.0); MEAN CORPUSCULAR HGB CONC 32.7 g/dl (32.0-37.0); MEAN CORPUSCULAR VOLUME 89.8 fl (82.0-101.0); MEAN PLATELET VOLUME 12.4 fl (7.4-10.4); MONOCYTE # 0.6 10^3/ul (0.3-0.9); MONOCYTES % 5.2 % (0.0-11.0); NEUTROPHIL # 9.6 10^3/ul (1.6-7.5); NEUTROPHILS % 77.6 % (39.0-77.0); PLATELET COUNT 410 10^3/UL (140-415); RED BLOOD COUNT 3.54 10^6/ul (4.20-5.40); RED CELL DISTRIBUTION WIDTH 16.9 % (11.5-14.5)
[2017-01-23 05:30] LABS: WHITE BLOOD COUNT 12.4 10^3/ul (4.8-10.8)
[2017-01-23] MEDS: FUROSEMIDE 20 MG INJ IV ×2 (06:00→11:17)
[2017-01-23 06:06] LABS: ANION GAP 13 (8-16); BLOOD UREA NITROGEN 14 mg/dl (7-20); CALCIUM 8.2 mg/dl (8.4-10.2); CARBON DIOXIDE 25 mmol/L (21-31); CHLORIDE 107 mmol/L (97-110); CREATININE 0.88 mg/dl (0.44-1.00); GLUCOSE 95 mg/dl (70-220); POTASSIUM 4.6 mmol/L (3.5-5.1); SODIUM 140 mmol/L (135-144)
[2017-01-23 06:19] LABS: MAGNESIUM 1.9 mg/dl (1.7-2.5)
[2017-01-23 06:19] LABS: PHOSPHORUS 3.4 mg/dl (2.5-4.9)
[2017-01-23] MEDS: morphine (ER) 15 MG TAB PO ×3 (09:00→21:00)
[2017-01-23] MEDS: DULOXETINE 30 MG CAP DR PO ×2 (09:19→20:59)
[2017-01-23] MEDS: MODAFINIL 200 MG TAB PO (09:19)
[2017-01-23] MEDS: DEXAMETHASONE 4 MG TAB PO ×2 (09:19→21:00)
[2017-01-23] MEDS: BACLOFEN 10 MG TAB PO ×4 (09:20→21:00)
[2017-01-23] MEDS: EXEMESTANE 25 MG TAB PO (09:31)
[2017-01-24] MEDS: LORAZEPAM 2 MG INJ IV ×4 (00:09→20:58)
[2017-01-24] MEDS: METOCLOPRAMIDE 10 MG INJ IV ×9 (00:09→23:14)
[2017-01-24] MEDS: GABAPENTIN 100 MG CAP PO ×6 (00:09→20:57)
[2017-01-24] MEDS: HYDROmorphONE 0.2 MG/ML PCA IV ×3 (05:23→19:03)
[2017-01-24] MEDS: FUROSEMIDE 20 MG INJ IV ×2 (05:54→14:35)
[2017-01-24 06:06] LABS: ADD MAN DIFF? NO
[2017-01-24 06:17] LABS: WHITE BLOOD COUNT 10.9 10^3/ul (4.8-10.8)
[2017-01-24 06:17] LABS: BASOPHILS % 0.1 % (0.0-2.0); EOSINOPHILS % 0.4 % (0.0-7.0); HEMATOCRIT 31.4 % (37.0-47.0); HEMOGLOBIN 10.1 g/dl (12.0-16.0); LYMPHOCYTES # 1.3 10^3/ul (0.8-2.9); LYMPHOCYTES % 12.2 % (15.0-51.0); MEAN CORPUSCULAR HEMOGLOBIN 29.3 pg (29.0-33.0); MEAN CORPUSCULAR HGB CONC 32.2 g/dl (32.0-37.0); MEAN PLATELET VOLUME 12.7 fl (7.4-10.4); MONOCYTE # 0.3 10^3/ul (0.3-0.9); MONOCYTES % 2.8 % (0.0-11.0); NEUTROPHIL # 9.2 10^3/ul (1.6-7.5); PLATELET COUNT 442 10^3/UL (140-415); RED BLOOD COUNT 3.45 10^6/ul (4.20-5.40); RED CELL DISTRIBUTION WIDTH 16.6 % (11.5-14.5)
[2017-01-24 06:34] LABS: MAGNESIUM 1.8 mg/dl (1.7-2.5)
[2017-01-24 06:34] LABS: PHOSPHORUS 3.2 mg/dl (2.5-4.9)
[2017-01-24] MEDS: ONDANSETRON 4 MG INJ IV ×3 (06:37→20:57)
[2017-01-24 06:46] LABS: ANION GAP 11 (8-16); BLOOD UREA NITROGEN 12 mg/dl (7-20); CALCIUM 8.5 mg/dl (8.4-10.2); CARBON DIOXIDE 29 mmol/L (21-31); CHLORIDE 105 mmol/L (97-110); CREATININE 0.78 mg/dl (0.44-1.00); GLUCOSE 99 mg/dl (70-220); POTASSIUM 3.4 mmol/L (3.5-5.1); SODIUM 142 mmol/L (135-144)
[2017-01-24] MEDS: morphine (ER) 15 MG TAB PO ×3 (09:00→21:00)
[2017-01-24] MEDS: EXEMESTANE 25 MG TAB PO (09:39)
[2017-01-24] MEDS: POTASSIUM CHLORIDE (SR) 20 MEQ TAB PO (09:39)
[2017-01-24] MEDS: MODAFINIL 200 MG TAB PO (09:40)
[2017-01-24] MEDS: DULOXETINE 30 MG CAP DR PO ×2 (09:40→20:57)
[2017-01-24] MEDS: DEXAMETHASONE 4 MG TAB PO ×2 (09:40→20:57)
[2017-01-24] MEDS: BACLOFEN 10 MG TAB PO ×4 (09:40→20:56)
[2017-01-24] MEDS: traZODone 50 MG TAB PO (23:15)
[2017-01-25] MEDS: HYDROmorphONE 0.2 MG/ML PCA IV ×5 (00:08→20:00)
[2017-01-25] MEDS: GABAPENTIN 100 MG CAP PO ×6 (00:10→21:05)
[2017-01-25] MEDS: LORAZEPAM 2 MG INJ IV ×7 (00:10→21:06)
[2017-01-25] MEDS: METOCLOPRAMIDE 10 MG INJ IV ×7 (03:00→21:09)
[2017-01-25] MEDS: ONDANSETRON 4 MG INJ IV ×3 (03:14→16:44)
[2017-01-25] MEDS: HYDROCODONE/APAP (10/325) TAB PO (04:30)
[2017-01-25 06:04] LABS: ANION GAP 13 (8-16); BLOOD UREA NITROGEN 15 mg/dl (7-20); CALCIUM 8.2 mg/dl (8.4-10.2); CARBON DIOXIDE 28 mmol/L (21-31); CHLORIDE 103 mmol/L (97-110); CREATININE 0.75 mg/dl (0.44-1.00); GLUCOSE 128 mg/dl (70-220); MAGNESIUM 1.7 mg/dl (1.7-2.5); PHOSPHORUS 3.1 mg/dl (2.5-4.9); POTASSIUM 3.4 mmol/L (3.5-5.1); SODIUM 141 mmol/L (135-144)
[2017-01-25] MEDS: FUROSEMIDE 20 MG INJ IV ×2 (06:06→14:00)
[2017-01-25] MEDS: DEXAMETHASONE 4 MG TAB PO ×2 (08:49→21:06)
[2017-01-25] MEDS: BACLOFEN 10 MG TAB PO ×4 (08:49→21:05)
[2017-01-25] MEDS: DULOXETINE 30 MG CAP DR PO ×2 (08:49→21:05)
[2017-01-25] MEDS: MODAFINIL 200 MG TAB PO (08:49)
[2017-01-25] MEDS: POTASSIUM CHLORIDE (SR) 20 MEQ TAB PO (08:49)
[2017-01-25] MEDS: morphine (ER) 15 MG TAB PO ×3 (08:50→21:00)
[2017-01-25] MEDS: EXEMESTANE 25 MG TAB PO (08:50)
[2017-01-25] MEDS ORDERED: LORAZEPAM 0.5 MG TAB PO (12:00)
[2017-01-25] MEDS: METOLAZONE 2.5 MG TAB PO (12:42)
[2017-01-25] MEDS: traZODone 50 MG TAB PO (21:06)
[2017-01-26] MEDS: ONDANSETRON 4 MG INJ IV ×4 (01:07→23:08)
[2017-01-26] MEDS: LORAZEPAM 2 MG INJ IV ×5 (01:08→23:00)
[2017-01-26] MEDS: GABAPENTIN 100 MG CAP PO ×6 (01:08→21:45)
[2017-01-26] MEDS: HYDROmorphONE 0.2 MG/ML PCA IV ×6 (01:19→23:01)
[2017-01-26] MEDS: METOCLOPRAMIDE 10 MG INJ IV ×8 (03:24→21:44)
[2017-01-26] MEDS: FUROSEMIDE 20 MG INJ IV ×2 (05:43→14:45)
[2017-01-26 06:15] LABS: ANION GAP 11 (8-16); BLOOD UREA NITROGEN 15 mg/dl (7-20); CALCIUM 9.7 mg/dl (8.4-10.2); CARBON DIOXIDE 31 mmol/L (21-31); CHLORIDE 101 mmol/L (97-110); CREATININE 0.84 mg/dl (0.44-1.00); GLUCOSE 115 mg/dl (70-220); MAGNESIUM 1.9 mg/dl (1.7-2.5); PHOSPHORUS 3.4 mg/dl (2.5-4.9); POTASSIUM 4.1 mmol/L (3.5-5.1); SODIUM 139 mmol/L (135-144)
[2017-01-26] MEDS: morphine (ER) 15 MG TAB PO ×3 (09:00→21:00)
[2017-01-26] MEDS: BACLOFEN 10 MG TAB PO ×4 (09:06→21:45)
[2017-01-26] MEDS: POTASSIUM CHLORIDE (SR) 20 MEQ TAB PO (09:06)
[2017-01-26] MEDS: DEXAMETHASONE 4 MG TAB PO ×2 (09:06→21:44)
[2017-01-26] MEDS: DULOXETINE 30 MG CAP DR PO ×2 (09:07→21:44)
[2017-01-26] MEDS: MODAFINIL 200 MG TAB PO (09:13)
[2017-01-26] MEDS: EXEMESTANE 25 MG TAB PO (09:36)
[2017-01-26] MEDS: METOLAZONE 2.5 MG TAB PO (10:44)
[2017-01-26] MEDS: traZODone 50 MG TAB PO (23:08)
[2017-01-27] MEDS: GABAPENTIN 100 MG CAP PO ×6 (01:00→21:27)
[2017-01-27] MEDS: METOCLOPRAMIDE 10 MG INJ IV ×8 (03:00→21:28)
[2017-01-27] MEDS: ONDANSETRON 4 MG INJ IV ×4 (03:27→21:28)
[2017-01-27] MEDS: LORAZEPAM 2 MG INJ IV ×6 (03:28→21:28)
[2017-01-27] MEDS: FUROSEMIDE 20 MG INJ IV ×2 (05:21→18:09)
[2017-01-27 05:22] LABS: ADD MAN DIFF? NO
[2017-01-27 05:26] LABS: BASOPHILS % 0.3 % (0.0-2.0); EOSINOPHILS # 0.1 10^3/ul (0.0-0.5); EOSINOPHILS % 1.3 % (0.0-7.0); HEMATOCRIT 31.6 % (37.0-47.0); HEMOGLOBIN 10.2 g/dl (12.0-16.0); LYMPHOCYTES # 1.5 10^3/ul (0.8-2.9); LYMPHOCYTES % 16.2 % (15.0-51.0); MEAN CORPUSCULAR HEMOGLOBIN 29.1 pg (29.0-33.0); MEAN CORPUSCULAR HGB CONC 32.3 g/dl (32.0-37.0); MEAN PLATELET VOLUME 12.5 fl (7.4-10.4); MONOCYTE # 0.2 10^3/ul (0.3-0.9); MONOCYTES % 2.2 % (0.0-11.0); NEUTROPHIL # 7.3 10^3/ul (1.6-7.5); NEUTROPHILS % 79.7 % (39.0-77.0); PLATELET COUNT 427 10^3/UL (140-415); RED BLOOD COUNT 3.51 10^6/ul (4.20-5.40); RED CELL DISTRIBUTION WIDTH 16.2 % (11.5-14.5)
[2017-01-27 05:26] LABS: WHITE BLOOD COUNT 9.1 10^3/ul (4.8-10.8)
[2017-01-27] MEDS: HYDROmorphONE 0.2 MG/ML PCA IV ×5 (05:28→23:35)
[2017-01-27 06:22] LABS: ANION GAP 15 (8-16); BLOOD UREA NITROGEN 16 mg/dl (7-20); CALCIUM 9.9 mg/dl (8.4-10.2); CARBON DIOXIDE 29 mmol/L (21-31); CHLORIDE 99 mmol/L (97-110); CREATININE 0.84 mg/dl (0.44-1.00); GLUCOSE 161 mg/dl (70-220); POTASSIUM 4.1 mmol/L (3.5-5.1); SODIUM 139 mmol/L (135-144)
[2017-01-27] MEDS: DULOXETINE 30 MG CAP DR PO ×2 (07:57→21:26)
[2017-01-27] MEDS: POTASSIUM CHLORIDE (SR) 20 MEQ TAB PO (07:58)
[2017-01-27] MEDS: BACLOFEN 10 MG TAB PO ×4 (07:58→21:27)
[2017-01-27] MEDS: morphine (ER) 15 MG TAB PO ×3 (07:59→21:00)
[2017-01-27] MEDS: MODAFINIL 200 MG TAB PO (08:07)
[2017-01-27] MEDS: EXEMESTANE 25 MG TAB PO (08:07)
[2017-01-27] MEDS: METOLAZONE 5 MG TAB PO (11:14)
[2017-01-27 21:15] LABS: CANCER ANTIGEN 15-3 186 U/mL (<32); CANCER ANTIGEN 15-3 217 U/mL (<32)
[2017-01-27] MEDS: traZODone 50 MG TAB PO (21:26)
[2017-01-28] MEDS: LORAZEPAM 2 MG INJ IV ×7 (00:27→20:43)
[2017-01-28] MEDS: METOCLOPRAMIDE 10 MG INJ IV ×8 (00:27→21:00)
[2017-01-28] MEDS: GABAPENTIN 100 MG CAP PO ×6 (01:00→20:43)
[2017-01-28] MEDS: DIAZEPAM 5 MG TAB PO (01:49)
[2017-01-28 05:13] LABS: ADD MAN DIFF? NO
[2017-01-28 05:18] LABS: BASOPHIL # 0.1 10^3/ul (0.0-0.1); BASOPHILS % 0.9 % (0.0-2.0); EOSINOPHILS # 0.2 10^3/ul (0.0-0.5); EOSINOPHILS % 2.7 % (0.0-7.0); HEMATOCRIT 30.8 % (37.0-47.0); HEMOGLOBIN 9.9 g/dl (12.0-16.0); LYMPHOCYTES # 2.3 10^3/ul (0.8-2.9); MEAN CORPUSCULAR HEMOGLOBIN 29.3 pg (29.0-33.0); MEAN CORPUSCULAR HGB CONC 32.1 g/dl (32.0-37.0); MEAN CORPUSCULAR VOLUME 91.1 fl (82.0-101.0); MEAN PLATELET VOLUME 12.5 fl (7.4-10.4); MONOCYTE # 0.4 10^3/ul (0.3-0.9); MONOCYTES % 5.9 % (0.0-11.0); NEUTROPHIL # 3.6 10^3/ul (1.6-7.5); NEUTROPHILS % 54.7 % (39.0-77.0); PLATELET COUNT 404 10^3/UL (140-415); RED BLOOD COUNT 3.38 10^6/ul (4.20-5.40)
[2017-01-28 05:18] LABS: WHITE BLOOD COUNT 6.7 10^3/ul (4.8-10.8)
[2017-01-28 05:44] LABS: ANION GAP 13 (8-16); BLOOD UREA NITROGEN 13 mg/dl (7-20); CALCIUM 9.6 mg/dl (8.4-10.2); CARBON DIOXIDE 31 mmol/L (21-31); CHLORIDE 99 mmol/L (97-110); CREATININE 0.87 mg/dl (0.44-1.00); GLUCOSE 97 mg/dl (70-220); POTASSIUM 4.3 mmol/L (3.5-5.1); SODIUM 139 mmol/L (135-144)
[2017-01-28] MEDS: FUROSEMIDE 20 MG INJ IV ×2 (06:30→14:43)
[2017-01-28] MEDS: HYDROmorphONE 0.2 MG/ML PCA IV ×5 (07:54→22:55)
[2017-01-28] MEDS: morphine (ER) 15 MG TAB PO ×3 (09:00→21:00)
[2017-01-28] MEDS: DULOXETINE 30 MG CAP DR PO ×2 (09:21→20:03)
[2017-01-28] MEDS: ONDANSETRON 4 MG INJ IV ×4 (09:21→20:07)
[2017-01-28] MEDS: BACLOFEN 10 MG TAB PO ×4 (09:22→20:03)
[2017-01-28] MEDS: EXEMESTANE 25 MG TAB PO (09:30)
[2017-01-28] MEDS: MODAFINIL 200 MG TAB PO (10:50)
[2017-01-28] MEDS: POTASSIUM CHLORIDE (SR) 20 MEQ TAB PO (10:51)
[2017-01-28] MEDS: METOLAZONE 2.5 MG TAB PO (10:53)
[2017-01-28] MEDS: SOD CHLORIDE 0.9% 1,000 ML IV (14:35)
[2017-01-28] MEDS: traZODone 50 MG TAB PO (20:04)
[2017-01-29] MEDS: GABAPENTIN 100 MG CAP PO ×6 (01:00→20:51)
[2017-01-29] MEDS: LORAZEPAM 2 MG INJ IV ×3 (02:45→20:52)
[2017-01-29] MEDS: ONDANSETRON 4 MG INJ IV ×2 (02:45→10:12)
[2017-01-29] MEDS: HYDROmorphONE 0.2 MG/ML PCA IV ×6 (02:46→22:16)
[2017-01-29] MEDS: METOCLOPRAMIDE 10 MG INJ IV ×8 (03:00→20:51)
[2017-01-29] MEDS: HYDROmorphONE 0.5 MG/0.5 ML SYG IV ×5 (03:10→22:53)
[2017-01-29 05:43] LABS: ADD MAN DIFF? NO
[2017-01-29] MEDS: FUROSEMIDE 20 MG INJ IV ×2 (05:49→14:53)
[2017-01-29 05:52] LABS: WHITE BLOOD COUNT 5.8 10^3/ul (4.8-10.8)
[2017-01-29 05:52] LABS: BASOPHIL # 0.1 10^3/ul (0.0-0.1); BASOPHILS % 1.2 % (0.0-2.0); EOSINOPHILS # 0.2 10^3/ul (0.0-0.5); EOSINOPHILS % 2.7 % (0.0-7.0); HEMATOCRIT 33.2 % (37.0-47.0); HEMOGLOBIN 10.6 g/dl (12.0-16.0); LYMPHOCYTES # 1.9 10^3/ul (0.8-2.9); MEAN CORPUSCULAR HEMOGLOBIN 29.3 pg (29.0-33.0); MEAN CORPUSCULAR HGB CONC 31.9 g/dl (32.0-37.0); MEAN CORPUSCULAR VOLUME 91.7 fl (82.0-101.0); MEAN PLATELET VOLUME 12.3 fl (7.4-10.4); MONOCYTE # 0.5 10^3/ul (0.3-0.9); MONOCYTES % 8.4 % (0.0-11.0); NEUTROPHIL # 3.1 10^3/ul (1.6-7.5); PLATELET COUNT 441 10^3/UL (140-415); RED BLOOD COUNT 3.62 10^6/ul (4.20-5.40); RED CELL DISTRIBUTION WIDTH 15.8 % (11.5-14.5)
[2017-01-29 06:50] LABS: ANION GAP 16 (8-16); BLOOD UREA NITROGEN 16 mg/dl (7-20); CALCIUM 9.5 mg/dl (8.4-10.2); CARBON DIOXIDE 31 mmol/L (21-31); CHLORIDE 96 mmol/L (97-110); CREATININE 0.96 mg/dl (0.44-1.00); GLUCOSE 127 mg/dl (70-220); POTASSIUM 4.1 mmol/L (3.5-5.1); SODIUM 139 mmol/L (135-144)
[2017-01-29] MEDS: morphine (ER) 15 MG TAB PO ×3 (09:00→20:52)
[2017-01-29] MEDS: DULOXETINE 30 MG CAP DR PO ×2 (09:45→20:51)
[2017-01-29] MEDS: BACLOFEN 10 MG TAB PO ×4 (09:45→20:51)
[2017-01-29] MEDS: POTASSIUM CHLORIDE (SR) 20 MEQ TAB PO (09:45)
[2017-01-29] MEDS: METOLAZONE 2.5 MG TAB PO (09:46)
[2017-01-29] MEDS: EXEMESTANE 25 MG TAB PO (09:49)
[2017-01-29] MEDS: MODAFINIL 200 MG TAB PO (10:13)
[2017-01-29] MEDS: traZODone 50 MG TAB PO (20:51)
[2017-01-29] MEDS ORDERED: CLINDAMYCIN 300 MG INJ IV (22:30)
[2017-01-30] MEDS: METOCLOPRAMIDE 10 MG INJ IV ×8 (00:20→20:21)
[2017-01-30] MEDS: CLINDAMYCIN 600 MG/D5W (PMX) 50 ML IVPB ×4 (00:20→21:02)
[2017-01-30] MEDS: GABAPENTIN 100 MG CAP PO ×6 (00:20→20:23)
[2017-01-30] MEDS: HYDROmorphONE 0.5 MG/0.5 ML SYG IV ×6 (00:53→19:38)
[2017-01-30] MEDS: HYDROmorphONE 0.2 MG/ML PCA IV ×6 (01:49→19:43)
[2017-01-30] MEDS: LORAZEPAM 2 MG INJ IV ×5 (01:51→20:21)
[2017-01-30] MEDS: FUROSEMIDE 20 MG INJ IV ×2 (05:41→13:30)
[2017-01-30 06:11] LABS: ADD MAN DIFF? NO
[2017-01-30 06:45] LABS: BASOPHILS % 0.7 % (0.0-2.0); EOSINOPHILS # 0.2 10^3/ul (0.0-0.5); EOSINOPHILS % 4.1 % (0.0-7.0); HEMATOCRIT 31.5 % (37.0-47.0); HEMOGLOBIN 10.3 g/dl (12.0-16.0); LYMPHOCYTES # 1.4 10^3/ul (0.8-2.9); LYMPHOCYTES % 32.9 % (15.0-51.0); MEAN CORPUSCULAR HGB CONC 32.7 g/dl (32.0-37.0); MEAN CORPUSCULAR VOLUME 91.8 fl (82.0-101.0); MEAN PLATELET VOLUME 12.4 fl (7.4-10.4); MONOCYTE # 0.5 10^3/ul (0.3-0.9); MONOCYTES % 11.6 % (0.0-11.0); NEUTROPHIL # 2.2 10^3/ul (1.6-7.5); NEUTROPHILS % 50.2 % (39.0-77.0); PLATELET COUNT 313 10^3/UL (140-415); RED BLOOD COUNT 3.43 10^6/ul (4.20-5.40); RED CELL DISTRIBUTION WIDTH 15.6 % (11.5-14.5)
[2017-01-30 06:45] LABS: WHITE BLOOD COUNT 4.4 10^3/ul (4.8-10.8)
[2017-01-30 07:15] LABS: ANION GAP 14 (8-16); BLOOD UREA NITROGEN 16 mg/dl (7-20); CALCIUM 9.1 mg/dl (8.4-10.2); CARBON DIOXIDE 31 mmol/L (21-31); CHLORIDE 99 mmol/L (97-110); CREATININE 0.79 mg/dl (0.44-1.00); GLUCOSE 104 mg/dl (70-220); POTASSIUM 3.9 mmol/L (3.5-5.1); SODIUM 140 mmol/L (135-144)
[2017-01-30] MEDS: MODAFINIL 200 MG TAB PO (08:18)
[2017-01-30] MEDS: BACLOFEN 10 MG TAB PO ×4 (08:18→20:22)
[2017-01-30] MEDS: DULOXETINE 30 MG CAP DR PO ×2 (08:18→20:23)
[2017-01-30] MEDS: POTASSIUM CHLORIDE (SR) 20 MEQ TAB PO (08:19)
[2017-01-30] MEDS: ONDANSETRON 4 MG INJ IV ×3 (08:22→17:30)
[2017-01-30] MEDS: EXEMESTANE 25 MG TAB PO (08:28)
[2017-01-30] MEDS: morphine (ER) 15 MG TAB PO ×3 (08:28→20:24)
[2017-01-30] MEDS: METOLAZONE 2.5 MG TAB PO (09:25)
[2017-01-30 10:52] LABS: ALBUMIN 3.3 g/dl (3.3-4.9)
[2017-01-30] MEDS ORDERED: LACTULOSE 30ML CUP PO (15:30)
[2017-01-30] MEDS ORDERED: BISACODYL 10 MG SUPP PR (15:30)
[2017-01-30] MEDS: BISACODYL (EC) 5 MG TAB PO (17:28)
[2017-01-30] MEDS: SOD CHLORIDE 0.9% 1,000 ML IV (18:12)
[2017-01-30] MEDS: SENNA TAB PO (20:21)
[2017-01-30] MEDS: traZODone 50 MG TAB PO (20:23)
[2017-01-31] MEDS: GABAPENTIN 100 MG CAP PO ×6 (01:59→20:13)
[2017-01-31] MEDS: LORAZEPAM 2 MG INJ IV ×5 (01:59→21:33)
[2017-01-31] MEDS: ONDANSETRON 4 MG INJ IV ×4 (02:00→16:51)
[2017-01-31] MEDS: HYDROmorphONE 0.2 MG/ML PCA IV ×6 (02:10→20:23)
[2017-01-31] MEDS: METOCLOPRAMIDE 10 MG INJ IV ×9 (03:00→20:13)
[2017-01-31] MEDS: DIAZEPAM 5 MG TAB PO (04:06)
[2017-01-31 05:24] LABS: ADD MAN DIFF? NO
[2017-01-31 05:30] LABS: WHITE BLOOD COUNT 4.2 10^3/ul (4.8-10.8)
[2017-01-31 05:30] LABS: EOSINOPHILS # 0.1 10^3/ul (0.0-0.5); EOSINOPHILS % 2.9 % (0.0-7.0); HEMATOCRIT 32.5 % (37.0-47.0); HEMOGLOBIN 10.3 g/dl (12.0-16.0); LYMPHOCYTES # 1.4 10^3/ul (0.8-2.9); LYMPHOCYTES % 34.2 % (15.0-51.0); MEAN CORPUSCULAR HEMOGLOBIN 29.4 pg (29.0-33.0); MEAN CORPUSCULAR HGB CONC 31.7 g/dl (32.0-37.0); MEAN CORPUSCULAR VOLUME 92.9 fl (82.0-101.0); MEAN PLATELET VOLUME 12.3 fl (7.4-10.4); MONOCYTE # 0.7 10^3/ul (0.3-0.9); MONOCYTES % 15.9 % (0.0-11.0); NEUTROPHIL # 1.9 10^3/ul (1.6-7.5); NEUTROPHILS % 45.3 % (39.0-77.0); PLATELET COUNT 391 10^3/UL (140-415); RED CELL DISTRIBUTION WIDTH 15.4 % (11.5-14.5)
[2017-01-31 05:59] LABS: ANION GAP 14 (8-16); BLOOD UREA NITROGEN 17 mg/dl (7-20); CALCIUM 9.8 mg/dl (8.4-10.2); CARBON DIOXIDE 31 mmol/L (21-31); CHLORIDE 97 mmol/L (97-110); GLUCOSE 115 mg/dl (70-220); POTASSIUM 3.8 mmol/L (3.5-5.1); SODIUM 138 mmol/L (135-144)
[2017-01-31] MEDS: CLINDAMYCIN 600 MG/D5W (PMX) 50 ML IVPB ×3 (06:35→22:02)
[2017-01-31] MEDS: FUROSEMIDE 20 MG INJ IV ×2 (06:51→14:43)
[2017-01-31] MEDS: HYDROmorphONE 0.5 MG/0.5 ML SYG IV ×5 (08:02→19:16)
[2017-01-31] MEDS: BACLOFEN 10 MG TAB PO ×4 (08:58→20:13)
[2017-01-31] MEDS: POTASSIUM CHLORIDE (SR) 20 MEQ TAB PO (08:58)
[2017-01-31] MEDS: SENNA TAB PO ×2 (08:58→20:12)
[2017-01-31] MEDS: DULOXETINE 30 MG CAP DR PO ×2 (08:58→20:13)
[2017-01-31] MEDS: morphine (ER) 15 MG TAB PO ×3 (08:59→21:00)
[2017-01-31] MEDS: MODAFINIL 200 MG TAB PO (08:59)
[2017-01-31] MEDS: METOLAZONE 2.5 MG TAB PO (09:00)
[2017-01-31] MEDS: EXEMESTANE 25 MG TAB PO (09:06)
[2017-01-31] MEDS: traZODone 50 MG TAB PO (21:34)
[2017-02-01] MEDS: METOCLOPRAMIDE 10 MG INJ IV ×8 (00:09→20:58)
[2017-02-01] MEDS: GABAPENTIN 100 MG CAP PO ×6 (00:09→20:59)
[2017-02-01] MEDS: ONDANSETRON 4 MG INJ IV ×3 (00:09→17:49)
[2017-02-01] MEDS: LORAZEPAM 2 MG INJ IV ×5 (00:32→21:16)
[2017-02-01] MEDS: HYDROmorphONE 0.2 MG/ML PCA IV ×7 (00:37→22:44)
[2017-02-01] MEDS: DIAZEPAM 5 MG TAB PO (00:51)
[2017-02-01] MEDS: CLINDAMYCIN 600 MG/D5W (PMX) 50 ML IVPB (05:27)
[2017-02-01 05:55] LABS: ADD MAN DIFF? NO
[2017-02-01] MEDS: FUROSEMIDE 20 MG INJ IV ×2 (06:00→14:40)
[2017-02-01 06:23] LABS: EOSINOPHILS # 0.1 10^3/ul (0.0-0.5); EOSINOPHILS % 2.7 % (0.0-7.0); HEMATOCRIT 32.5 % (37.0-47.0); HEMOGLOBIN 10.4 g/dl (12.0-16.0); LYMPHOCYTES # 1.7 10^3/ul (0.8-2.9); LYMPHOCYTES % 40.2 % (15.0-51.0); MEAN CORPUSCULAR HEMOGLOBIN 29.1 pg (29.0-33.0); MEAN CORPUSCULAR VOLUME 90.8 fl (82.0-101.0); MEAN PLATELET VOLUME 11.8 fl (7.4-10.4); MONOCYTE # 0.8 10^3/ul (0.3-0.9); MONOCYTES % 19.5 % (0.0-11.0); NEUTROPHIL # 1.5 10^3/ul (1.6-7.5); NEUTROPHILS % 36.4 % (39.0-77.0); NUCLEATED RED BLOOD CELLS% 0.5 /100WBC (0.0-0.0); PLATELET COUNT 483 10^3/UL (140-415); RED BLOOD COUNT 3.58 10^6/ul (4.20-5.40); RED CELL DISTRIBUTION WIDTH 15.5 % (11.5-14.5)
[2017-02-01 06:23] LABS: WHITE BLOOD COUNT 4.2 10^3/ul (4.8-10.8)
[2017-02-01 06:44] LABS: ANION GAP 17 (8-16); BLOOD UREA NITROGEN 21 mg/dl (7-20); CALCIUM 10.1 mg/dl (8.4-10.2); CARBON DIOXIDE 30 mmol/L (21-31); CHLORIDE 95 mmol/L (97-110); CREATININE 0.95 mg/dl (0.44-1.00); GLUCOSE 116 mg/dl (70-220); POTASSIUM 3.2 mmol/L (3.5-5.1); SODIUM 139 mmol/L (135-144)
[2017-02-01] MEDS: morphine (ER) 15 MG TAB PO ×3 (09:00→21:00)
[2017-02-01] MEDS: DULOXETINE 30 MG CAP DR PO ×2 (09:18→20:59)
[2017-02-01] MEDS: SENNA TAB PO ×2 (09:19→21:00)
[2017-02-01] MEDS: POTASSIUM CHLORIDE (SR) 20 MEQ TAB PO (09:20)
[2017-02-01] MEDS: BACLOFEN 10 MG TAB PO ×4 (09:20→21:00)
[2017-02-01] MEDS: METOLAZONE 2.5 MG TAB PO (09:26)
[2017-02-01] MEDS: EXEMESTANE 25 MG TAB PO (09:38)
[2017-02-01] MEDS: MODAFINIL 200 MG TAB PO (09:48)
[2017-02-01] MEDS: HYDROmorphONE 2 MG TAB PO ×2 (10:18→12:46)
[2017-02-01] MEDS: POTASSIUM CHLORIDE 30 MEQ in SOD CHLORIDE 0.9% 150 ML IVPB (11:46)
[2017-02-01] MEDS: traZODone 50 MG TAB PO (22:05)
[2017-02-02] MEDS: METOCLOPRAMIDE 10 MG INJ IV ×9 (00:01→21:00)
[2017-02-02] MEDS: GABAPENTIN 100 MG CAP PO ×6 (01:00→21:10)
[2017-02-02] MEDS: LORAZEPAM 2 MG INJ IV ×5 (03:36→22:07)
[2017-02-02] MEDS: FUROSEMIDE 20 MG INJ IV ×3 (04:53→14:26)
[2017-02-02] MEDS: HYDROmorphONE 0.2 MG/ML PCA IV ×6 (04:53→22:16)
[2017-02-02 06:23] LABS: ADD MAN DIFF? NO
[2017-02-02 06:32] LABS: WHITE BLOOD COUNT 4.2 10^3/ul (4.8-10.8)
[2017-02-02 06:32] LABS: BASOPHIL # 0.1 10^3/ul (0.0-0.1); BASOPHILS % 1.4 % (0.0-2.0); EOSINOPHILS # 0.1 10^3/ul (0.0-0.5); EOSINOPHILS % 3.4 % (0.0-7.0); HEMATOCRIT 33.1 % (37.0-47.0); HEMOGLOBIN 10.5 g/dl (12.0-16.0); LYMPHOCYTES # 1.6 10^3/ul (0.8-2.9); LYMPHOCYTES % 38.3 % (15.0-51.0); MEAN CORPUSCULAR HEMOGLOBIN 29.2 pg (29.0-33.0); MEAN CORPUSCULAR HGB CONC 31.7 g/dl (32.0-37.0); MEAN CORPUSCULAR VOLUME 92.2 fl (82.0-101.0); MEAN PLATELET VOLUME 12.1 fl (7.4-10.4); MONOCYTE # 0.8 10^3/ul (0.3-0.9); NEUTROPHIL # 1.6 10^3/ul (1.6-7.5); NEUTROPHILS % 37.4 % (39.0-77.0); PLATELET COUNT 499 10^3/UL (140-415); RED BLOOD COUNT 3.59 10^6/ul (4.20-5.40); RED CELL DISTRIBUTION WIDTH 15.4 % (11.5-14.5)
[2017-02-02] MEDS: HYDROmorphONE 2 MG TAB PO (07:44)
[2017-02-02] MEDS: POTASSIUM CHLORIDE (SR) 20 MEQ TAB PO (08:40)
[2017-02-02] MEDS: SENNA TAB PO ×2 (08:40→21:10)
[2017-02-02] MEDS: METOLAZONE 2.5 MG TAB PO (08:40)
[2017-02-02] MEDS: DULOXETINE 30 MG CAP DR PO ×2 (08:41→21:10)
[2017-02-02] MEDS: BACLOFEN 10 MG TAB PO ×4 (08:41→21:10)
[2017-02-02] MEDS: MODAFINIL 200 MG TAB PO (08:41)
[2017-02-02] MEDS: EXEMESTANE 25 MG TAB PO (08:44)
[2017-02-02 08:45] LABS: PHOSPHORUS 4.7 mg/dl (2.5-4.9)
[2017-02-02 08:45] LABS: MAGNESIUM 1.5 mg/dl (1.7-2.5)
[2017-02-02] MEDS: morphine (ER) 15 MG TAB PO ×3 (08:46→21:00)
[2017-02-02 09:30] LABS: ANION GAP 16 (8-16); BLOOD UREA NITROGEN 18 mg/dl (7-20); CALCIUM 11.1 mg/dl (8.4-10.2); CARBON DIOXIDE 30 mmol/L (21-31); CHLORIDE 95 mmol/L (97-110); CREATININE 0.83 mg/dl (0.44-1.00); GLUCOSE 139 mg/dl (70-220); POTASSIUM 4.3 mmol/L (3.5-5.1); SODIUM 137 mmol/L (135-144)
[2017-02-02] MEDS: MAGNESIUM SULFATE 2 GM/50 ML 50 ML IVPB (11:15)
[2017-02-02] MEDS: LEVOFLOXACIN 500 MG TAB PO (11:15)
[2017-02-02] MEDS: ONDANSETRON 4 MG INJ IV ×2 (17:39→22:06)
[2017-02-02] MEDS: BISACODYL (EC) 5 MG TAB PO (17:49)
[2017-02-02] MEDS: HYDROmorphONE 0.5 MG/0.5 ML SYG IV ×2 (21:11→23:09)
[2017-02-02] MEDS: traZODone 50 MG TAB PO (22:12)
[2017-02-03] MEDS: GABAPENTIN 100 MG CAP PO ×5 (01:05→17:42)
[2017-02-03] MEDS: LORAZEPAM 2 MG INJ IV ×5 (01:05→17:47)
[2017-02-03] MEDS: ONDANSETRON 4 MG INJ IV ×4 (01:05→17:43)
[2017-02-03] MEDS: HYDROmorphONE 0.5 MG/0.5 ML SYG IV ×4 (02:00→23:23)
[2017-02-03] MEDS: HYDROmorphONE 0.2 MG/ML PCA IV ×8 (02:12→20:15)
[2017-02-03] MEDS: METOCLOPRAMIDE 10 MG INJ IV ×9 (03:00→22:49)
[2017-02-03] MEDS: LEVOFLOXACIN 500 MG TAB PO (05:11)
[2017-02-03 05:27] LABS: ADD MAN DIFF? NO
[2017-02-03 05:29] LABS: WHITE BLOOD COUNT 4.5 10^3/ul (4.8-10.8)
[2017-02-03 05:29] LABS: BASOPHIL # 0.1 10^3/ul (0.0-0.1); BASOPHILS % 1.5 % (0.0-2.0); EOSINOPHILS # 0.1 10^3/ul (0.0-0.5); EOSINOPHILS % 3.1 % (0.0-7.0); HEMATOCRIT 30.8 % (37.0-47.0); HEMOGLOBIN 9.8 g/dl (12.0-16.0); LYMPHOCYTES # 1.8 10^3/ul (0.8-2.9); LYMPHOCYTES % 40.4 % (15.0-51.0); MEAN CORPUSCULAR HGB CONC 31.8 g/dl (32.0-37.0); MEAN CORPUSCULAR VOLUME 91.1 fl (82.0-101.0); MEAN PLATELET VOLUME 11.7 fl (7.4-10.4); MONOCYTE # 1.1 10^3/ul (0.3-0.9); MONOCYTES % 23.2 % (0.0-11.0); NEUTROPHIL # 1.4 10^3/ul (1.6-7.5); NEUTROPHILS % 31.4 % (39.0-77.0); PLATELET COUNT 476 10^3/UL (140-415); RED BLOOD COUNT 3.38 10^6/ul (4.20-5.40); RED CELL DISTRIBUTION WIDTH 15.4 % (11.5-14.5)
[2017-02-03 06:01] LABS: ANION GAP 13 (8-16); BLOOD UREA NITROGEN 15 mg/dl (7-20); CALCIUM 11.3 mg/dl (8.4-10.2); CARBON DIOXIDE 33 mmol/L (21-31); CHLORIDE 98 mmol/L (97-110); GLUCOSE 107 mg/dl (70-220); MAGNESIUM 1.7 mg/dl (1.7-2.5); PHOSPHORUS 5.3 mg/dl (2.5-4.9); POTASSIUM 3.6 mmol/L (3.5-5.1); SODIUM 140 mmol/L (135-144)
[2017-02-03] MEDS: DULOXETINE 30 MG CAP DR PO ×2 (07:25→22:21)
[2017-02-03] MEDS: BACLOFEN 10 MG TAB PO ×4 (07:26→22:21)
[2017-02-03] MEDS: MODAFINIL 200 MG TAB PO (07:26)
[2017-02-03] MEDS: POTASSIUM CHLORIDE (SR) 20 MEQ TAB PO (07:26)
[2017-02-03] MEDS: EXEMESTANE 25 MG TAB PO (07:38)
[2017-02-03] MEDS: SENNA TAB PO ×2 (08:41→22:21)
[2017-02-03] MEDS: morphine (ER) 15 MG TAB PO ×3 (09:00→21:00)
[2017-02-03] MEDS: GABAPENTIN 300 MG CAP PO (22:22)
[2017-02-03] MEDS: traZODone 50 MG TAB PO (22:23)
[2017-02-04] MEDS: HYDROmorphONE 0.2 MG/ML PCA IV ×8 (00:07→23:47)
[2017-02-04] MEDS: METOCLOPRAMIDE 10 MG INJ IV ×7 (03:00→21:05)
[2017-02-04] MEDS: HYDROmorphONE 0.5 MG/0.5 ML SYG IV (05:05)
[2017-02-04] MEDS: LEVOFLOXACIN 500 MG TAB PO (05:05)
[2017-02-04] MEDS: morphine (ER) 15 MG TAB PO ×3 (09:00→21:00)
[2017-02-04] MEDS: ONDANSETRON 4 MG INJ IV ×4 (09:04→21:06)
[2017-02-04] MEDS: LORAZEPAM 2 MG INJ IV ×4 (09:05→21:06)
[2017-02-04] MEDS: POTASSIUM CHLORIDE (SR) 20 MEQ TAB PO (09:08)
[2017-02-04] MEDS: BACLOFEN 10 MG TAB PO ×4 (09:08→21:05)
[2017-02-04] MEDS: DULOXETINE 30 MG CAP DR PO ×2 (09:08→21:05)
[2017-02-04] MEDS: MODAFINIL 200 MG TAB PO (09:09)
[2017-02-04] MEDS: SENNA TAB PO ×2 (09:09→21:05)
[2017-02-04] MEDS: GABAPENTIN 300 MG CAP PO ×3 (09:09→21:05)
[2017-02-04] MEDS: EXEMESTANE 25 MG TAB PO (09:14)
[2017-02-04 09:46] LABS: ADD MAN DIFF? NO
[2017-02-04 09:48] LABS: BASOPHIL # 0.1 10^3/ul (0.0-0.1); BASOPHILS % 1.3 % (0.0-2.0); EOSINOPHILS # 0.1 10^3/ul (0.0-0.5); EOSINOPHILS % 2.1 % (0.0-7.0); HEMATOCRIT 31.7 % (37.0-47.0); HEMOGLOBIN 10.2 g/dl (12.0-16.0); LYMPHOCYTES % 37.4 % (15.0-51.0); MEAN CORPUSCULAR HEMOGLOBIN 29.4 pg (29.0-33.0); MEAN CORPUSCULAR HGB CONC 32.2 g/dl (32.0-37.0); MEAN CORPUSCULAR VOLUME 91.4 fl (82.0-101.0); MEAN PLATELET VOLUME 11.6 fl (7.4-10.4); MONOCYTE # 1.3 10^3/ul (0.3-0.9); NEUTROPHIL # 1.8 10^3/ul (1.6-7.5); NEUTROPHILS % 33.7 % (39.0-77.0); PLATELET COUNT 510 10^3/UL (140-415); RED BLOOD COUNT 3.47 10^6/ul (4.20-5.40); RED CELL DISTRIBUTION WIDTH 15.4 % (11.5-14.5)
[2017-02-04 09:48] LABS: WHITE BLOOD COUNT 5.3 10^3/ul (4.8-10.8)
[2017-02-04 10:12] LABS: MONOCYTES % 24.7 % (0.0-11.0)
[2017-02-04 10:14] LABS: ANION GAP 14 (8-16); BLOOD UREA NITROGEN 12 mg/dl (7-20); CARBON DIOXIDE 32 mmol/L (21-31); CHLORIDE 96 mmol/L (97-110); CREATININE 0.83 mg/dl (0.44-1.00); GLUCOSE 103 mg/dl (70-220); POTASSIUM 4.2 mmol/L (3.5-5.1); SODIUM 138 mmol/L (135-144)
[2017-02-04 10:22] LABS: PHOSPHORUS 4.9 mg/dl (2.5-4.9)
[2017-02-04 10:22] LABS: MAGNESIUM 1.5 mg/dl (1.7-2.5)
[2017-02-04] MEDS: MAGNESIUM SULFATE 2 GM/50 ML 50 ML IVPB (14:37)
[2017-02-04] MEDS: traZODone 50 MG TAB PO (22:02)
[2017-02-04] MEDS: DIAZEPAM 5 MG TAB PO (23:39)
[2017-02-05] MEDS: ONDANSETRON 4 MG INJ IV ×4 (02:32→17:36)
[2017-02-05] MEDS: LORAZEPAM 2 MG INJ IV ×5 (02:33→21:17)
[2017-02-05] MEDS: METOCLOPRAMIDE 10 MG INJ IV ×8 (02:37→21:16)
[2017-02-05] MEDS: HYDROmorphONE 0.5 MG/0.5 ML SYG IV ×2 (03:19→16:48)
[2017-02-05] MEDS: HYDROmorphONE 0.2 MG/ML PCA IV ×7 (04:29→22:36)
[2017-02-05] MEDS: LEVOFLOXACIN 500 MG TAB PO (05:34)
[2017-02-05] MEDS: SOD CHLORIDE 0.9% 1,000 ML IV (09:00)
[2017-02-05] MEDS: morphine (ER) 15 MG TAB PO ×3 (09:00→21:00)
[2017-02-05] MEDS: DULOXETINE 30 MG CAP DR PO ×2 (09:41→21:16)
[2017-02-05] MEDS: SENNA TAB PO ×2 (09:41→21:16)
[2017-02-05] MEDS: POTASSIUM CHLORIDE (SR) 20 MEQ TAB PO (09:41)
[2017-02-05] MEDS: GABAPENTIN 300 MG CAP PO ×3 (09:41→21:16)
[2017-02-05] MEDS: BACLOFEN 10 MG TAB PO ×4 (09:41→21:16)
[2017-02-05] MEDS: EXEMESTANE 25 MG TAB PO (09:52)
[2017-02-05] MEDS: MODAFINIL 200 MG TAB PO (10:08)
[2017-02-05] MEDS: FUROSEMIDE 20 MG INJ IV ×2 (11:50→17:38)
[2017-02-05] MEDS: traZODone 50 MG TAB PO (21:18)
[2017-02-06] MEDS: ONDANSETRON 4 MG INJ IV ×5 (01:36→18:10)
[2017-02-06] MEDS: LORAZEPAM 2 MG INJ IV ×6 (01:36→21:07)
[2017-02-06] MEDS: METOCLOPRAMIDE 10 MG INJ IV ×8 (03:00→20:54)
[2017-02-06] MEDS: HYDROmorphONE 0.5 MG/0.5 ML SYG IV ×2 (03:05→16:30)
[2017-02-06] MEDS: LEVOFLOXACIN 500 MG TAB PO (05:33)
[2017-02-06] MEDS: BISACODYL (EC) 5 MG TAB PO (05:34)
[2017-02-06 05:47] LABS: WHITE BLOOD COUNT 6.4 10^3/ul (4.8-10.8)
[2017-02-06 05:47] LABS: ABNORMAL IP MESSAGE 1; HEMATOCRIT 30.2 % (37.0-47.0); HEMOGLOBIN 9.5 g/dl (12.0-16.0); MEAN CORPUSCULAR HGB CONC 31.5 g/dl (32.0-37.0); MEAN CORPUSCULAR VOLUME 92.1 fl (82.0-101.0); MEAN PLATELET VOLUME 11.6 fl (7.4-10.4); PLATELET COUNT 536 10^3/UL (140-415); RED BLOOD COUNT 3.28 10^6/ul (4.20-5.40); RED CELL DISTRIBUTION WIDTH 15.1 % (11.5-14.5)
[2017-02-06] MEDS: HYDROmorphONE 0.2 MG/ML PCA IV ×7 (06:01→21:04)
[2017-02-06 06:24] LABS: MAGNESIUM 1.5 mg/dl (1.7-2.5)
[2017-02-06 06:24] LABS: PHOSPHORUS 4.7 mg/dl (2.5-4.9)
[2017-02-06 06:26] LABS: ANION GAP 16 (8-16); BLOOD UREA NITROGEN 12 mg/dl (7-20); CALCIUM 10.2 mg/dl (8.4-10.2); CARBON DIOXIDE 34 mmol/L (21-31); CHLORIDE 94 mmol/L (97-110); CREATININE 0.87 mg/dl (0.44-1.00); GLUCOSE 117 mg/dl (70-220); POTASSIUM 3.5 mmol/L (3.5-5.1); SODIUM 140 mmol/L (135-144)
[2017-02-06] MEDS: SOD CHLORIDE 0.9% 1,000 ML IV (06:51)
[2017-02-06 06:56] LABS: ADD MAN DIFF? YES; POSITIVE DIFF @See below
[2017-02-06] MEDS: morphine (ER) 15 MG TAB PO ×3 (09:00→20:55)
[2017-02-06] MEDS ORDERED: MAGNESIUM SULFATE 2 GM/50 ML 50 ML IVPB (09:00)
[2017-02-06 10:41] LABS: ANISOCYTOSIS 1+ (0-0); EOSINOPHILS % (M) 2 % (0-7); GIANT THROMBO% (M) 8 % (0-0); LYMPHOCYTES #M 1.6 10^3/ul (0.8-2.9); LYMPHOCYTES % (M) 25 % (15-51); MONOCYTE #M 2.1 10^3/ul (0.3-0.9); MONOCYTES % (M) 33 % (0-11); MYELOCYTES #M 0.1 10^3/ul (0.0-0.0); MYELOCYTES % (M) 2 % (0-0); PLATELET ESTIMATE INCREASED; PLATELET MORPHOLOGY COMMENT @See below; POIKILOCYTOSIS 1+ (0-0); POLYCHROMASIA 2+ (0-0); REACTIVE LYMPHOCYTES #M 0.1 10^3/ul (0.0-0.0); REACTIVE LYMPHOCYTES% (M) 2 % (0-0); SEGMENTED NEUTROPHILS (M) % 36 % (39-77); SMUDGE%M 4 % (0-0); SPHEROCYTES 1+ (0-0); TARGET CELLS 1+ (0-0)
[2017-02-06] MEDS: GABAPENTIN 300 MG CAP PO ×3 (10:53→20:56)
[2017-02-06] MEDS: POTASSIUM CHLORIDE (SR) 20 MEQ TAB PO (10:53)
[2017-02-06] MEDS: DULOXETINE 30 MG CAP DR PO ×2 (10:53→20:55)
[2017-02-06] MEDS: BACLOFEN 10 MG TAB PO ×4 (10:54→20:55)
[2017-02-06] MEDS: EXEMESTANE 25 MG TAB PO (10:56)
[2017-02-06] MEDS: FUROSEMIDE 20 MG INJ IV (10:58)
[2017-02-06] MEDS: MAGNESIUM SULFATE 2 GM/50 ML 50 ML IVPB (10:58)
[2017-02-06] MEDS: SENNA TAB PO ×2 (10:59→20:56)
[2017-02-06] MEDS: MODAFINIL 200 MG TAB PO (11:12)
[2017-02-06] MEDS: traZODone 50 MG TAB PO (20:56)
[2017-02-07] MEDS: HYDROmorphONE 0.2 MG/ML PCA IV ×8 (00:09→23:44)
[2017-02-07] MEDS: METOCLOPRAMIDE 10 MG INJ IV ×8 (00:20→20:55)
[2017-02-07] MEDS: LORAZEPAM 2 MG INJ IV ×3 (00:24→17:41)
[2017-02-07] MEDS: SOD CHLORIDE 0.9% 1,000 ML IV ×2 (00:32→21:00)
[2017-02-07] MEDS: HYDROmorphONE 0.5 MG/0.5 ML SYG IV ×3 (02:48→15:59)
[2017-02-07 05:51] LABS: ADD MAN DIFF? NO
[2017-02-07 06:02] LABS: ABNORMAL IP MESSAGE 1; BASOPHIL # 0.1 10^3/ul (0.0-0.1); BASOPHILS % 0.9 % (0.0-2.0); EOSINOPHILS # 0.1 10^3/ul (0.0-0.5); EOSINOPHILS % 1.6 % (0.0-7.0); HEMATOCRIT 29.3 % (37.0-47.0); LYMPHOCYTES # 2.1 10^3/ul (0.8-2.9); MEAN CORPUSCULAR HEMOGLOBIN 28.4 pg (29.0-33.0); MEAN CORPUSCULAR HGB CONC 30.7 g/dl (32.0-37.0); MEAN CORPUSCULAR VOLUME 92.4 fl (82.0-101.0); MEAN PLATELET VOLUME 11.7 fl (7.4-10.4); MONOCYTE # 1.7 10^3/ul (0.3-0.9); MONOCYTES % 21.7 % (0.0-11.0); NEUTROPHIL # 3.5 10^3/ul (1.6-7.5); NEUTROPHILS % 45.3 % (39.0-77.0); PLATELET COUNT 543 10^3/UL (140-415); RED BLOOD COUNT 3.17 10^6/ul (4.20-5.40); RED CELL DISTRIBUTION WIDTH 15.2 % (11.5-14.5)
[2017-02-07 06:02] LABS: WHITE BLOOD COUNT 7.6 10^3/ul (4.8-10.8)
[2017-02-07] MEDS: LEVOFLOXACIN 500 MG TAB PO (06:22)
[2017-02-07 06:58] LABS: POSITIVE DIFF @See below
[2017-02-07 07:08] LABS: ANION GAP 13 (8-16); BLOOD UREA NITROGEN 10 mg/dl (7-20); CALCIUM 9.9 mg/dl (8.4-10.2); CARBON DIOXIDE 32 mmol/L (21-31); CHLORIDE 96 mmol/L (97-110); CREATININE 0.82 mg/dl (0.44-1.00); GLUCOSE 128 mg/dl (70-220); MAGNESIUM 1.7 mg/dl (1.7-2.5); PHOSPHORUS 4.5 mg/dl (2.5-4.9); POTASSIUM 3.4 mmol/L (3.5-5.1); SODIUM 138 mmol/L (135-144)
[2017-02-07] MEDS: DULOXETINE 30 MG CAP DR PO ×2 (08:04→20:55)
[2017-02-07] MEDS: BACLOFEN 10 MG TAB PO ×4 (08:05→20:55)
[2017-02-07] MEDS: POTASSIUM CHLORIDE (SR) 20 MEQ TAB PO (08:05)
[2017-02-07] MEDS: GABAPENTIN 300 MG CAP PO ×3 (08:05→20:55)
[2017-02-07] MEDS: SENNA TAB PO ×2 (08:06→20:55)
[2017-02-07] MEDS: BISACODYL (EC) 5 MG TAB PO (08:06)
[2017-02-07] MEDS: MODAFINIL 200 MG TAB PO (08:06)
[2017-02-07] MEDS: EXEMESTANE 25 MG TAB PO (08:08)
[2017-02-07] MEDS: morphine (ER) 15 MG TAB PO ×3 (08:13→21:00)
[2017-02-07] MEDS: ONDANSETRON 4 MG INJ IV ×2 (09:17→17:41)
[2017-02-07] MEDS: MAGNESIUM SULFATE 2 GM/50 ML 50 ML IVPB (10:23)
[2017-02-07] MEDS: FUROSEMIDE 20 MG INJ IV (11:03)
[2017-02-07] MEDS: traZODone 50 MG TAB PO (20:55)
[2017-02-08] MEDS: METOCLOPRAMIDE 10 MG INJ IV ×8 (00:50→21:49)
[2017-02-08] MEDS: LORAZEPAM 2 MG INJ IV ×6 (00:50→22:22)
[2017-02-08] MEDS: HYDROmorphONE 0.2 MG/ML PCA IV ×6 (02:17→22:59)
[2017-02-08] MEDS: LEVOFLOXACIN 500 MG TAB PO (05:18)
[2017-02-08 06:28] LABS: ANION GAP 13 (8-16); BLOOD UREA NITROGEN 11 mg/dl (7-20); CALCIUM 10.4 mg/dl (8.4-10.2); CARBON DIOXIDE 33 mmol/L (21-31); CHLORIDE 96 mmol/L (97-110); CREATININE 0.86 mg/dl (0.44-1.00); GLUCOSE 101 mg/dl (70-220); MAGNESIUM 1.9 mg/dl (1.7-2.5); PHOSPHORUS 5.2 mg/dl (2.5-4.9); POTASSIUM 3.6 mmol/L (3.5-5.1); SODIUM 138 mmol/L (135-144)
[2017-02-08] MEDS: MODAFINIL 200 MG TAB PO (09:00)
[2017-02-08] MEDS: ONDANSETRON 4 MG INJ IV ×4 (09:50→22:18)
[2017-02-08] MEDS: GABAPENTIN 300 MG CAP PO ×3 (09:54→21:47)
[2017-02-08] MEDS: BACLOFEN 10 MG TAB PO ×4 (09:54→21:47)
[2017-02-08] MEDS: POTASSIUM CHLORIDE (SR) 20 MEQ TAB PO (09:54)
[2017-02-08] MEDS: SENNA TAB PO ×2 (09:55→21:49)
[2017-02-08] MEDS: DULOXETINE 30 MG CAP DR PO ×2 (09:55→21:47)
[2017-02-08] MEDS: FUROSEMIDE 40 MG INJ IV (09:57)
[2017-02-08] MEDS: morphine (ER) 15 MG TAB PO ×3 (10:06→13:48)
[2017-02-08] MEDS: EXEMESTANE 25 MG TAB PO (11:37)
[2017-02-08] MEDS: METOLAZONE 5 MG TAB PO (13:47)
[2017-02-08] MEDS: SOD CHLORIDE 0.9% 1,000 ML IV (17:00)
[2017-02-08] MEDS: traZODone 50 MG TAB PO (21:47)
[2017-02-09] MEDS: METOCLOPRAMIDE 10 MG INJ IV ×8 (00:25→21:00)
[2017-02-09] MEDS: ONDANSETRON 4 MG INJ IV ×5 (01:40→23:31)
[2017-02-09] MEDS: LORAZEPAM 2 MG INJ IV ×5 (01:43→23:31)
[2017-02-09] MEDS: HYDROmorphONE 0.2 MG/ML PCA IV ×6 (02:44→22:15)
[2017-02-09] MEDS: LEVOFLOXACIN 500 MG TAB PO ×2 (05:25→09:12)
[2017-02-09] MEDS ORDERED: FUROSEMIDE 20 MG INJ IV (09:00)
[2017-02-09] MEDS: morphine (ER) 15 MG TAB PO ×3 (09:00→21:00)
[2017-02-09] MEDS: SENNA TAB PO ×2 (09:09→23:31)
[2017-02-09] MEDS: GABAPENTIN 300 MG CAP PO ×3 (09:09→23:31)
[2017-02-09] MEDS: POTASSIUM CHLORIDE (SR) 20 MEQ TAB PO (09:11)
[2017-02-09] MEDS: DULOXETINE 30 MG CAP DR PO ×2 (09:12→23:31)
[2017-02-09] MEDS: BACLOFEN 10 MG TAB PO ×4 (09:12→23:31)
[2017-02-09] MEDS: FUROSEMIDE 20 MG INJ IV (09:13)
[2017-02-09] MEDS: EXEMESTANE 25 MG TAB PO (09:19)
[2017-02-09] MEDS: MODAFINIL 200 MG TAB PO (10:15)
[2017-02-09] MEDS: METOLAZONE 5 MG TAB PO (10:16)
[2017-02-09] MEDS: SOD CHLORIDE 0.9% 1,000 ML IV (12:49)
[2017-02-09 15:34] LABS: ABNORMAL IP MESSAGE 1; HEMATOCRIT 31.1 % (37.0-47.0); HEMOGLOBIN 9.9 g/dl (12.0-16.0); MEAN CORPUSCULAR HEMOGLOBIN 29.3 pg (29.0-33.0); MEAN CORPUSCULAR HGB CONC 31.8 g/dl (32.0-37.0); MEAN PLATELET VOLUME 11.4 fl (7.4-10.4); NUCLEATED RED BLOOD CELLS% 0.2 /100WBC (0.0-0.0); PLATELET COUNT 618 10^3/UL (140-415); RED BLOOD COUNT 3.38 10^6/ul (4.20-5.40); RED CELL DISTRIBUTION WIDTH 15.3 % (11.5-14.5)
[2017-02-09 15:37] LABS: POSITIVE DIFF @See below
[2017-02-09 15:42] LABS: ADD MAN DIFF? YES
[2017-02-09 15:53] LABS: ANION GAP 16 (8-16); BLOOD UREA NITROGEN 11 mg/dl (7-20); CALCIUM 10.6 mg/dl (8.4-10.2); CARBON DIOXIDE 33 mmol/L (21-31); CHLORIDE 96 mmol/L (97-110); CREATININE 0.88 mg/dl (0.44-1.00); GLUCOSE 93 mg/dl (70-220); MAGNESIUM 1.7 mg/dl (1.7-2.5); PHOSPHORUS 5.1 mg/dl (2.5-4.9); POTASSIUM 4.1 mmol/L (3.5-5.1); SODIUM 141 mmol/L (135-144)
[2017-02-09 16:08] LABS: ANISOCYTOSIS 1+ (0-0); BAND NEUTROPHILS #M 0.6 10^3/ul (0.0-0.6); BAND NEUTROPHILS % (M) 5 % (0-4); BASOPHIL #M 0.1 10^3/ul (0.0-0.0); BASOPHILS % (M) 1 % (0-2); EOSINOPHILS % (M) 1 % (0-7); GIANT THROMBO% (M) 2 % (0-0); LYMPHOCYTES % (M) 25 % (15-51); MONOCYTE #M 1.9 10^3/ul (0.3-0.9); MONOCYTES % (M) 16 % (0-11); PLATELET ESTIMATE INCREASED; POIKILOCYTOSIS 1+ (0-0); POLYCHROMASIA 1+ (0-0); PROMYELOCYTES #M 0.2 10^3/ul (0-0); PROMYELOCYTES % (M) 2 % (0-0); REACTIVE LYMPHOCYTES #M 0.6 10^3/ul (0.0-0.0); REACTIVE LYMPHOCYTES% (M) 5 % (0-0); SEG NEUT #M 5.4 10^3/ul (1.7-7.5); SEGMENTED NEUTROPHILS (M) % 44 % (39-77); SMUDGE%M 14 % (0-0)
[2017-02-09] MEDS: PAMIDRONATE 90 MG in SOD CHLORIDE 0.9% 500 ML IV (17:26)
[2017-02-09] MEDS: traZODone 50 MG TAB PO (23:31)
[2017-02-10] MEDS: HYDROmorphONE 0.2 MG/ML PCA IV ×6 (02:26→22:15)
[2017-02-10] MEDS: LORAZEPAM 2 MG INJ IV ×4 (02:54→17:54)
[2017-02-10] MEDS: ONDANSETRON 4 MG INJ IV ×4 (02:54→17:53)
[2017-02-10] MEDS: METOCLOPRAMIDE 10 MG INJ IV ×8 (03:00→21:22)
[2017-02-10] MEDS: LEVOFLOXACIN 500 MG TAB PO (07:19)
[2017-02-10] MEDS: morphine (ER) 15 MG TAB PO ×3 (09:00→21:00)
[2017-02-10] MEDS: FUROSEMIDE 20 MG INJ IV (09:00)
[2017-02-10] MEDS: SOD CHLORIDE 0.9% 1,000 ML IV (09:00)
[2017-02-10] MEDS: METOLAZONE 5 MG TAB PO (09:00)
[2017-02-10] MEDS: MODAFINIL 200 MG TAB PO (09:28)
[2017-02-10] MEDS: GABAPENTIN 300 MG CAP PO ×3 (09:28→21:20)
[2017-02-10] MEDS: SENNA TAB PO ×2 (09:28→21:20)
[2017-02-10] MEDS: POTASSIUM CHLORIDE (SR) 20 MEQ TAB PO (09:28)
[2017-02-10] MEDS: DULOXETINE 30 MG CAP DR PO ×2 (09:29→21:20)
[2017-02-10] MEDS: BACLOFEN 10 MG TAB PO ×4 (09:29→21:21)
[2017-02-10] MEDS: EXEMESTANE 25 MG TAB PO (09:54)
[2017-02-10 11:21] LABS: ANION GAP 19 (8-16); BLOOD UREA NITROGEN 11 mg/dl (7-20); CALCIUM 10.7 mg/dl (8.4-10.2); CARBON DIOXIDE 32 mmol/L (21-31); CHLORIDE 94 mmol/L (97-110); CREATININE 0.88 mg/dl (0.44-1.00); GLUCOSE 151 mg/dl (70-220); MAGNESIUM 1.5 mg/dl (1.7-2.5); PHOSPHORUS 5.3 mg/dl (2.5-4.9); POTASSIUM 3.7 mmol/L (3.5-5.1); SODIUM 141 mmol/L (135-144)
[2017-02-10] MEDS ORDERED: HYDROCODONE/APAP (10/325) TAB PO (17:00)
[2017-02-10] MEDS: HYDROmorphONE 0.5 MG/0.5 ML SYG IV (18:42)
[2017-02-10] MEDS: traZODone 50 MG TAB PO (21:21)
[2017-02-11] MEDS: METOCLOPRAMIDE 10 MG INJ IV ×9 (00:30→23:37)
[2017-02-11] MEDS: HYDROmorphONE 0.2 MG/ML PCA IV ×6 (02:27→22:54)
[2017-02-11] MEDS: ONDANSETRON 4 MG INJ IV ×4 (02:46→18:10)
[2017-02-11] MEDS: LORAZEPAM 2 MG INJ IV ×5 (02:46→23:37)
[2017-02-11] MEDS: SOD CHLORIDE 0.9% 1,000 ML IV ×2 (05:00→05:50)
[2017-02-11 05:38] LABS: ANION GAP 14 (8-16); BLOOD UREA NITROGEN 10 mg/dl (7-20); CALCIUM 9.5 mg/dl (8.4-10.2); CARBON DIOXIDE 32 mmol/L (21-31); CHLORIDE 95 mmol/L (97-110); CREATININE 0.85 mg/dl (0.44-1.00); GLUCOSE 142 mg/dl (70-220); MAGNESIUM 1.5 mg/dl (1.7-2.5); PHOSPHORUS 4.6 mg/dl (2.5-4.9); POTASSIUM 3.4 mmol/L (3.5-5.1); SODIUM 138 mmol/L (135-144)
[2017-02-11] MEDS: LEVOFLOXACIN 500 MG TAB PO (05:49)
[2017-02-11] MEDS: EXEMESTANE 25 MG TAB PO (09:00)
[2017-02-11] MEDS: morphine (ER) 15 MG TAB PO ×3 (09:00→21:00)
[2017-02-11] MEDS: FUROSEMIDE 40 MG INJ IV ×2 (09:22→21:19)
[2017-02-11] MEDS: DULOXETINE 30 MG CAP DR PO ×2 (09:23→21:21)
[2017-02-11] MEDS: SENNA TAB PO ×2 (09:24→21:25)
[2017-02-11] MEDS: GABAPENTIN 300 MG CAP PO ×3 (09:24→21:22)
[2017-02-11] MEDS: BACLOFEN 10 MG TAB PO ×4 (09:24→21:22)
[2017-02-11] MEDS: POTASSIUM CHLORIDE (SR) 20 MEQ TAB PO (09:25)
[2017-02-11] MEDS: SPIRONOLACTONE 25 MG TAB PO (09:28)
[2017-02-11] MEDS: MAGNESIUM SULFATE 2 GM/50 ML 50 ML IVPB (10:41)
[2017-02-11] MEDS: MODAFINIL 200 MG TAB PO (10:44)
[2017-02-11] MEDS: METOLAZONE 5 MG TAB PO (10:45)
[2017-02-11] MEDS: traZODone 50 MG TAB PO (21:27)
[2017-02-12] MEDS: SOD CHLORIDE 0.9% 1,000 ML IV ×2 (01:00→09:00)
[2017-02-12] MEDS: HYDROmorphONE 0.2 MG/ML PCA IV ×7 (02:30→23:46)
[2017-02-12] MEDS: METOCLOPRAMIDE 10 MG INJ IV ×8 (03:17→23:39)
[2017-02-12] MEDS: LORAZEPAM 2 MG INJ IV ×5 (03:17→23:39)
[2017-02-12 06:10] LABS: ANION GAP 16 (8-16); BLOOD UREA NITROGEN 12 mg/dl (7-20); CARBON DIOXIDE 34 mmol/L (21-31); CHLORIDE 94 mmol/L (97-110); CREATININE 0.94 mg/dl (0.44-1.00); GLUCOSE 141 mg/dl (70-220); MAGNESIUM 1.9 mg/dl (1.7-2.5); PHOSPHORUS 4.9 mg/dl (2.5-4.9); POTASSIUM 3.1 mmol/L (3.5-5.1); SODIUM 141 mmol/L (135-144)
[2017-02-12] MEDS: LEVOFLOXACIN 500 MG TAB PO (06:34)
[2017-02-12] MEDS: morphine (ER) 15 MG TAB PO ×3 (09:00→20:53)
[2017-02-12] MEDS: BACLOFEN 10 MG TAB PO ×4 (09:14→20:51)
[2017-02-12] MEDS: DULOXETINE 30 MG CAP DR PO ×2 (09:15→20:51)
[2017-02-12] MEDS: GABAPENTIN 300 MG CAP PO ×3 (09:15→20:51)
[2017-02-12] MEDS: METOLAZONE 5 MG TAB PO (09:15)
[2017-02-12] MEDS: POTASSIUM CHLORIDE (SR) 20 MEQ TAB PO ×2 (09:16→12:43)
[2017-02-12] MEDS: SENNA TAB PO ×2 (09:16→20:50)
[2017-02-12] MEDS: MODAFINIL 200 MG TAB PO (09:16)
[2017-02-12] MEDS: FUROSEMIDE 40 MG INJ IV ×2 (09:16→22:55)
[2017-02-12] MEDS: ONDANSETRON 4 MG INJ IV ×3 (09:17→17:59)
[2017-02-12] MEDS: EXEMESTANE 25 MG TAB PO (09:19)
[2017-02-12] MEDS: SPIRONOLACTONE 50 MG TAB PO (09:23)
[2017-02-12] MEDS: MAGNESIUM SULFATE 2 GM/50 ML 50 ML IVPB (10:29)
[2017-02-12] MEDS: traZODone 50 MG TAB PO (22:55)
[2017-02-13] MEDS: HYDROmorphONE 0.2 MG/ML PCA IV ×6 (02:32→22:19)
[2017-02-13] MEDS: LORAZEPAM 2 MG INJ IV ×4 (02:41→21:04)
[2017-02-13] MEDS: METOCLOPRAMIDE 10 MG INJ IV ×7 (02:45→20:59)
[2017-02-13 05:31] LABS: ABNORMAL IP MESSAGE 1; HEMATOCRIT 29.5 % (37.0-47.0); HEMOGLOBIN 9.2 g/dl (12.0-16.0); MEAN CORPUSCULAR HEMOGLOBIN 28.9 pg (29.0-33.0); MEAN CORPUSCULAR HGB CONC 31.2 g/dl (32.0-37.0); MEAN CORPUSCULAR VOLUME 92.8 fl (82.0-101.0); MEAN PLATELET VOLUME 11.1 fl (7.4-10.4); NUCLEATED RED BLOOD CELLS% 0.2 /100WBC (0.0-0.0); PLATELET COUNT 550 10^3/UL (140-415); RED BLOOD COUNT 3.18 10^6/ul (4.20-5.40); RED CELL DISTRIBUTION WIDTH 15.6 % (11.5-14.5)
[2017-02-13 05:31] LABS: WHITE BLOOD COUNT 13.4 10^3/ul (4.8-10.8)
[2017-02-13 05:48] LABS: ADD MAN DIFF? YES; POSITIVE DIFF @See below
[2017-02-13] MEDS: LEVOFLOXACIN 500 MG TAB PO (06:12)
[2017-02-13] MEDS: SOD CHLORIDE 0.9% 1,000 ML IV (06:13)
[2017-02-13 06:22] LABS: ANION GAP 15 (8-16); BLOOD UREA NITROGEN 11 mg/dl (7-20); CALCIUM 8.5 mg/dl (8.4-10.2); CARBON DIOXIDE 32 mmol/L (21-31); CHLORIDE 96 mmol/L (97-110); CREATININE 0.87 mg/dl (0.44-1.00); GLUCOSE 126 mg/dl (70-220); MAGNESIUM 2.3 mg/dl (1.7-2.5); PHOSPHORUS 4.6 mg/dl (2.5-4.9); POTASSIUM 3.4 mmol/L (3.5-5.1); SODIUM 140 mmol/L (135-144)
[2017-02-13 07:51] LABS: ANISOCYTOSIS 1+ (0-0); BAND NEUTROPHILS #M 2.1 10^3/ul (0.0-0.6); BAND NEUTROPHILS % (M) 16 % (0-4); EOSINOPHILS % (M) 1 % (0-7); ERYTHROBLAST% (NRBC) (M) 1 % (0-0); HYPOCHROMASIA 1+ (0-0); LYMPHOCYTES #M 1.3 10^3/ul (0.8-2.9); LYMPHOCYTES % (M) 10 % (15-51); METAMYELOCYTES #M 0.9 10^3/ul (0.0-0.0); METAMYELOCYTES %M 7 % (0-0); MONOCYTE #M 0.5 10^3/ul (0.3-0.9); MONOCYTES % (M) 4 % (0-11); MYELOCYTES #M 0.9 10^3/ul (0.0-0.0); MYELOCYTES % (M) 7 % (0-0); PLATELET ESTIMATE INCREASED; POIKILOCYTOSIS 1+ (0-0); POLYCHROMASIA 1+ (0-0); SEG NEUT #M 7.7 10^3/ul (1.7-7.5); SEGMENTED NEUTROPHILS (M) % 55 % (39-77); SMUDGE%M 2 % (0-0)
[2017-02-13] MEDS: GABAPENTIN 300 MG CAP PO ×3 (08:55→20:57)
[2017-02-13] MEDS: SPIRONOLACTONE 50 MG TAB PO (08:56)
[2017-02-13] MEDS: METOLAZONE 5 MG TAB PO (08:56)
[2017-02-13] MEDS: SENNA TAB PO ×2 (08:56→20:57)
[2017-02-13] MEDS: DULOXETINE 30 MG CAP DR PO ×2 (08:58→20:57)
[2017-02-13] MEDS: POTASSIUM CHLORIDE (SR) 20 MEQ TAB PO (08:58)
[2017-02-13] MEDS: BACLOFEN 10 MG TAB PO ×4 (08:58→20:57)
[2017-02-13] MEDS: morphine (ER) 15 MG TAB PO ×3 (09:00→21:00)
[2017-02-13] MEDS: FUROSEMIDE 40 MG INJ IV ×2 (09:00→21:06)
[2017-02-13] MEDS: EXEMESTANE 25 MG TAB PO (09:13)
[2017-02-13] MEDS: ONDANSETRON 4 MG INJ IV ×3 (09:20→17:40)
[2017-02-13] MEDS: MODAFINIL 200 MG TAB PO (09:20)
[2017-02-13] MEDS: traZODone 50 MG TAB PO (20:57)
[2017-02-14] MEDS: METOCLOPRAMIDE 10 MG INJ IV ×8 (00:28→21:00)
[2017-02-14] MEDS: LORAZEPAM 2 MG INJ IV ×5 (01:52→23:55)
[2017-02-14] MEDS: HYDROmorphONE 0.2 MG/ML PCA IV ×6 (03:27→20:51)
[2017-02-14] MEDS: LEVOFLOXACIN 500 MG TAB PO (06:12)
[2017-02-14] MEDS: SOD CHLORIDE 0.9% 1,000 ML IV (09:00)
[2017-02-14] MEDS: morphine (ER) 15 MG TAB PO ×3 (09:00→21:00)
[2017-02-14] MEDS: ONDANSETRON 4 MG INJ IV ×4 (09:04→23:55)
[2017-02-14] MEDS: FUROSEMIDE 40 MG INJ IV ×2 (09:09→21:22)
[2017-02-14] MEDS: SPIRONOLACTONE 50 MG TAB PO (09:10)
[2017-02-14] MEDS: DULOXETINE 30 MG CAP DR PO ×2 (09:10→21:22)
[2017-02-14] MEDS: SENNA TAB PO ×2 (09:11→21:22)
[2017-02-14] MEDS: POTASSIUM CHLORIDE (SR) 20 MEQ TAB PO (09:11)
[2017-02-14] MEDS: GABAPENTIN 300 MG CAP PO ×3 (09:11→21:22)
[2017-02-14] MEDS: BACLOFEN 10 MG TAB PO ×4 (09:11→21:25)
[2017-02-14] MEDS: MODAFINIL 200 MG TAB PO (09:11)
[2017-02-14] MEDS: METOLAZONE 5 MG TAB PO (09:12)
[2017-02-14] MEDS: EXEMESTANE 25 MG TAB PO (09:27)
[2017-02-14] MEDS: traZODone 50 MG TAB PO (21:26)
[2017-02-15] MEDS: HYDROmorphONE 0.2 MG/ML PCA IV ×7 (00:18→21:45)
[2017-02-15] MEDS: METOCLOPRAMIDE 10 MG INJ IV ×9 (03:00→23:55)
[2017-02-15] MEDS: ONDANSETRON 4 MG INJ IV ×4 (04:42→20:39)
[2017-02-15] MEDS: LORAZEPAM 2 MG INJ IV ×4 (04:42→20:40)
[2017-02-15 05:16] LABS: ABNORMAL IP MESSAGE 1; HEMATOCRIT 31.7 % (37.0-47.0); HEMOGLOBIN 9.8 g/dl (12.0-16.0); MEAN CORPUSCULAR HEMOGLOBIN 28.7 pg (29.0-33.0); MEAN CORPUSCULAR HGB CONC 30.9 g/dl (32.0-37.0); MEAN CORPUSCULAR VOLUME 92.7 fl (82.0-101.0); MEAN PLATELET VOLUME 11.4 fl (7.4-10.4); NUCLEATED RED BLOOD CELLS% 0.3 /100WBC (0.0-0.0); PLATELET COUNT 561 10^3/UL (140-415); RED BLOOD COUNT 3.42 10^6/ul (4.20-5.40); RED CELL DISTRIBUTION WIDTH 15.9 % (11.5-14.5)
[2017-02-15 05:16] LABS: WHITE BLOOD COUNT 14.1 10^3/ul (4.8-10.8)
[2017-02-15 05:23] LABS: POSITIVE DIFF @See below
[2017-02-15 05:24] LABS: ADD MAN DIFF? YES
[2017-02-15 07:18] LABS: ALANINE AMINOTRANSFERASE 81 IU/L (13-69); ALBUMIN 3.9 g/dl (3.3-4.9); ALBUMIN/GLOBULIN RATIO 0.95; ALKALINE PHOSPHATASE 630 IU/L (42-121); ANION GAP 18 (8-16); ASPARTATE AMINO TRANSFERASE 76 IU/L (15-46); BLOOD UREA NITROGEN 11 mg/dl (7-20); CALCIUM 9.2 mg/dl (8.4-10.2); CARBON DIOXIDE 31 mmol/L (21-31); CHLORIDE 97 mmol/L (97-110); CREATININE 0.83 mg/dl (0.44-1.00); GLUCOSE 140 mg/dl (70-220); POTASSIUM 3.7 mmol/L (3.5-5.1); SODIUM 142 mmol/L (135-144)
[2017-02-15] MEDS: LEVOFLOXACIN 500 MG TAB PO (07:21)
[2017-02-15 08:57] LABS: ANISOCYTOSIS 1+ (0-0); BAND NEUTROPHILS #M 0.5 10^3/ul (0.0-0.6); BAND NEUTROPHILS % (M) 4 % (0-4); EOSINOPHILS % (M) 2 % (0-7); LYMPHOCYTES #M 2.1 10^3/ul (0.8-2.9); LYMPHOCYTES % (M) 15 % (15-51); MONOCYTE #M 1.4 10^3/ul (0.3-0.9); MONOCYTES % (M) 10 % (0-11); MYELOCYTES #M 0.1 10^3/ul (0.0-0.0); MYELOCYTES % (M) 1 % (0-0); PLATELET ESTIMATE INCREASED; POIKILOCYTOSIS 1+ (0-0); REACTIVE LYMPHOCYTES #M 0.2 10^3/ul (0.0-0.0); REACTIVE LYMPHOCYTES% (M) 2 % (0-0); SEG NEUT #M 9.4 10^3/ul (1.7-7.5); SEGMENTED NEUTROPHILS (M) % 66 % (39-77); SMUDGE%M 5 % (0-0); TARGET CELLS 1+ (0-0)
[2017-02-15] MEDS: morphine (ER) 15 MG TAB PO ×3 (09:00→21:00)
[2017-02-15] MEDS: FUROSEMIDE 40 MG INJ IV ×2 (09:00→21:00)
[2017-02-15] MEDS: SOD CHLORIDE 0.9% 1,000 ML IV (09:00)
[2017-02-15] MEDS: SPIRONOLACTONE 50 MG TAB PO ×2 (09:00→11:50)
[2017-02-15] MEDS: HYDROmorphONE 0.5 MG/0.5 ML SYG IV ×2 (09:51→14:02)
[2017-02-15] MEDS: BACLOFEN 10 MG TAB PO ×4 (09:57→20:35)
[2017-02-15] MEDS: SENNA TAB PO ×2 (09:57→20:35)
[2017-02-15] MEDS: GABAPENTIN 300 MG CAP PO ×3 (09:57→20:35)
[2017-02-15] MEDS: DULOXETINE 30 MG CAP DR PO ×2 (09:57→20:35)
[2017-02-15] MEDS: POTASSIUM CHLORIDE (SR) 20 MEQ TAB PO (09:58)
[2017-02-15] MEDS: METOLAZONE 5 MG TAB PO (09:58)
[2017-02-15] MEDS: EXEMESTANE 25 MG TAB PO (10:03)
[2017-02-15] MEDS: MODAFINIL 200 MG TAB PO (11:49)
[2017-02-15] MEDS: traZODone 50 MG TAB PO (21:00)
[2017-02-16] MEDS: HYDROmorphONE 0.2 MG/ML PCA IV ×6 (02:26→21:22)
[2017-02-16] MEDS: METOCLOPRAMIDE 10 MG INJ IV ×7 (03:00→20:40)
[2017-02-16 05:49] LABS: WHITE BLOOD COUNT 13.5 10^3/ul (4.8-10.8)
[2017-02-16 05:49] LABS: ABNORMAL IP MESSAGE 1; HEMATOCRIT 29.5 % (37.0-47.0); HEMOGLOBIN 9.2 g/dl (12.0-16.0); MEAN CORPUSCULAR HEMOGLOBIN 28.8 pg (29.0-33.0); MEAN CORPUSCULAR HGB CONC 31.2 g/dl (32.0-37.0); MEAN CORPUSCULAR VOLUME 92.5 fl (82.0-101.0); MEAN PLATELET VOLUME 11.5 fl (7.4-10.4); NUCLEATED RED BLOOD CELLS% 0.1 /100WBC (0.0-0.0); PLATELET COUNT 498 10^3/UL (140-415); RED BLOOD COUNT 3.19 10^6/ul (4.20-5.40); RED CELL DISTRIBUTION WIDTH 15.9 % (11.5-14.5)
[2017-02-16 05:53] LABS: ADD MAN DIFF? YES; POSITIVE DIFF @See below
[2017-02-16 06:07] LABS: PHOSPHORUS 5.5 mg/dl (2.5-4.9)
[2017-02-16 06:07] LABS: MAGNESIUM 1.9 mg/dl (1.7-2.5)
[2017-02-16 06:22] LABS: ALANINE AMINOTRANSFERASE 60 IU/L (13-69); ALBUMIN 3.6 g/dl (3.3-4.9); ALKALINE PHOSPHATASE 508 IU/L (42-121); ANION GAP 16 (8-16); ASPARTATE AMINO TRANSFERASE 47 IU/L (15-46); BLOOD UREA NITROGEN 10 mg/dl (7-20); CALCIUM 8.6 mg/dl (8.4-10.2); CARBON DIOXIDE 30 mmol/L (21-31); CHLORIDE 99 mmol/L (97-110); GLUCOSE 108 mg/dl (70-220); POTASSIUM 3.8 mmol/L (3.5-5.1); SODIUM 141 mmol/L (135-144); TOTAL PROTEIN 7.2 g/dl (6.1-8.1)
[2017-02-16] MEDS: SPIRONOLACTONE 50 MG TAB PO (08:43)
[2017-02-16] MEDS: BACLOFEN 10 MG TAB PO ×4 (08:43→20:42)
[2017-02-16] MEDS: SENNA TAB PO ×2 (08:44→20:41)
[2017-02-16] MEDS: POTASSIUM CHLORIDE (SR) 20 MEQ TAB PO (08:44)
[2017-02-16] MEDS: DULOXETINE 30 MG CAP DR PO ×2 (08:44→20:41)
[2017-02-16] MEDS: morphine (ER) 15 MG TAB PO ×4 (08:45→21:00)
[2017-02-16] MEDS: GABAPENTIN 300 MG CAP PO ×3 (08:45→21:26)
[2017-02-16] MEDS: METOLAZONE 5 MG TAB PO (08:46)
[2017-02-16] MEDS: FUROSEMIDE 40 MG INJ IV ×3 (08:47→20:53)
[2017-02-16] MEDS: SOD CHLORIDE 0.9% 1,000 ML IV ×2 (08:48→20:41)
[2017-02-16] MEDS: EXEMESTANE 25 MG TAB PO (08:54)
[2017-02-16] MEDS: MODAFINIL 200 MG TAB PO (09:07)
[2017-02-16] MEDS: LORAZEPAM 2 MG INJ IV ×3 (09:10→18:01)
[2017-02-16] MEDS: ONDANSETRON 4 MG INJ IV ×3 (09:11→18:00)
[2017-02-16 09:27] LABS: ANISOCYTOSIS 2+ (0-0); BAND NEUTROPHILS #M 1.2 10^3/ul (0.0-0.6); BAND NEUTROPHILS % (M) 9 % (0-4); BURR CELLS 1+ (0-0); EOSINOPHILS % (M) 3 % (0-7); HYPOCHROMASIA 2+ (0-0); LYMPHOCYTES % (M) 15 % (15-51); METAMYELOCYTES #M 0.1 10^3/ul (0.0-0.0); METAMYELOCYTES %M 1 % (0-0); MONOCYTE #M 0.6 10^3/ul (0.3-0.9); MONOCYTES % (M) 5 % (0-11); PLATELET ESTIMATE NORMAL; POIKILOCYTOSIS 1+ (0-0); POLYCHROMASIA 1+ (0-0); SEG NEUT #M 9.2 10^3/ul (1.7-7.5); SEGMENTED NEUTROPHILS (M) % 67 % (39-77); SMUDGE%M 15 % (0-0)
[2017-02-16] MEDS: traZODone 50 MG TAB PO (20:42)
[2017-02-17] MEDS: ONDANSETRON 4 MG INJ IV ×6 (00:09→23:37)
[2017-02-17] MEDS: METOCLOPRAMIDE 10 MG INJ IV ×5 (00:09→12:21)
[2017-02-17] MEDS: LORAZEPAM 2 MG INJ IV ×6 (00:10→23:37)
[2017-02-17] MEDS: HYDROmorphONE 0.2 MG/ML PCA IV ×6 (00:18→21:07)
[2017-02-17 05:30] LABS: ADD MAN DIFF? NO
[2017-02-17 05:35] LABS: BASOPHIL # 0.1 10^3/ul (0.0-0.1); BASOPHILS % 0.5 % (0.0-2.0); EOSINOPHILS # 0.4 10^3/ul (0.0-0.5); EOSINOPHILS % 2.5 % (0.0-7.0); HEMATOCRIT 29.3 % (37.0-47.0); HEMOGLOBIN 9.2 g/dl (12.0-16.0); LYMPHOCYTES # 2.3 10^3/ul (0.8-2.9); LYMPHOCYTES % 16.5 % (15.0-51.0); MEAN CORPUSCULAR HEMOGLOBIN 28.7 pg (29.0-33.0); MEAN CORPUSCULAR HGB CONC 31.4 g/dl (32.0-37.0); MEAN CORPUSCULAR VOLUME 91.3 fl (82.0-101.0); MEAN PLATELET VOLUME 11.5 fl (7.4-10.4); MONOCYTE # 1.3 10^3/ul (0.3-0.9); MONOCYTES % 9.1 % (0.0-11.0); NEUTROPHIL # 9.3 10^3/ul (1.6-7.5); NEUTROPHILS % 66.6 % (39.0-77.0); NUCLEATED RED BLOOD CELLS% 0.2 /100WBC (0.0-0.0); PLATELET COUNT 492 10^3/UL (140-415); RED BLOOD COUNT 3.21 10^6/ul (4.20-5.40); RED CELL DISTRIBUTION WIDTH 15.9 % (11.5-14.5)
[2017-02-17 06:03] LABS: PHOSPHORUS 5.9 mg/dl (2.5-4.9)
[2017-02-17 06:03] LABS: MAGNESIUM 1.8 mg/dl (1.7-2.5)
[2017-02-17 06:04] LABS: ANION GAP 11 (8-16); BLOOD UREA NITROGEN 12 mg/dl (7-20); CALCIUM 8.5 mg/dl (8.4-10.2); CARBON DIOXIDE 32 mmol/L (21-31); CHLORIDE 97 mmol/L (97-110); CREATININE 0.91 mg/dl (0.44-1.00); GLUCOSE 133 mg/dl (70-220); POTASSIUM 3.2 mmol/L (3.5-5.1); SODIUM 137 mmol/L (135-144)
[2017-02-17] MEDS: morphine (ER) 15 MG TAB PO ×3 (09:00→20:36)
[2017-02-17] MEDS: DULOXETINE 30 MG CAP DR PO ×2 (09:30→20:36)
[2017-02-17] MEDS: FUROSEMIDE 40 MG INJ IV ×2 (09:30→12:24)
[2017-02-17] MEDS: EXEMESTANE 25 MG TAB PO (09:31)
[2017-02-17] MEDS: GABAPENTIN 300 MG CAP PO ×3 (09:31→20:35)
[2017-02-17] MEDS: SENNA TAB PO ×2 (09:31→20:35)
[2017-02-17] MEDS: SPIRONOLACTONE 50 MG TAB PO (09:32)
[2017-02-17] MEDS: POTASSIUM CHLORIDE (SR) 20 MEQ TAB PO (09:33)
[2017-02-17] MEDS: BACLOFEN 10 MG TAB PO ×4 (09:33→20:35)
[2017-02-17] MEDS: METOLAZONE 5 MG TAB PO (09:33)
[2017-02-17] MEDS: MODAFINIL 200 MG TAB PO (10:09)
[2017-02-17] MEDS: METOCLOPRAMIDE 5 MG TAB PO ×4 (14:58→23:38)
[2017-02-17] MEDS: traZODone 50 MG TAB PO (23:38)
[2017-02-18] MEDS: HYDROmorphONE 0.2 MG/ML PCA IV ×5 (00:22→20:22)
[2017-02-18] MEDS: METOCLOPRAMIDE 5 MG TAB PO ×8 (03:00→21:00)
[2017-02-18] MEDS: LORAZEPAM 2 MG INJ IV ×5 (03:58→22:02)
[2017-02-18] MEDS: ONDANSETRON 4 MG INJ IV ×5 (03:58→22:02)
[2017-02-18 05:12] LABS: ADD MAN DIFF? NO
[2017-02-18 05:18] LABS: BASOPHIL # 0.1 10^3/ul (0.0-0.1); BASOPHILS % 0.5 % (0.0-2.0); EOSINOPHILS # 0.4 10^3/ul (0.0-0.5); HEMATOCRIT 30.8 % (37.0-47.0); HEMOGLOBIN 9.8 g/dl (12.0-16.0); LYMPHOCYTES # 2.5 10^3/ul (0.8-2.9); LYMPHOCYTES % 17.4 % (15.0-51.0); MEAN CORPUSCULAR HEMOGLOBIN 28.9 pg (29.0-33.0); MEAN CORPUSCULAR HGB CONC 31.8 g/dl (32.0-37.0); MEAN CORPUSCULAR VOLUME 90.9 fl (82.0-101.0); MEAN PLATELET VOLUME 11.2 fl (7.4-10.4); MONOCYTE # 1.4 10^3/ul (0.3-0.9); MONOCYTES % 9.9 % (0.0-11.0); NEUTROPHIL # 9.4 10^3/ul (1.6-7.5); NEUTROPHILS % 66.2 % (39.0-77.0); NUCLEATED RED BLOOD CELLS% 0.1 /100WBC (0.0-0.0); PLATELET COUNT 511 10^3/UL (140-415); RED BLOOD COUNT 3.39 10^6/ul (4.20-5.40); RED CELL DISTRIBUTION WIDTH 16.4 % (11.5-14.5)
[2017-02-18 05:18] LABS: WHITE BLOOD COUNT 14.2 10^3/ul (4.8-10.8)
[2017-02-18 05:41] LABS: PHOSPHORUS 6.1 mg/dl (2.5-4.9)
[2017-02-18 05:41] LABS: MAGNESIUM 2.1 mg/dl (1.7-2.5)
[2017-02-18 05:54] LABS: ANION GAP 16 (8-16); BLOOD UREA NITROGEN 13 mg/dl (7-20); CALCIUM 8.7 mg/dl (8.4-10.2); CARBON DIOXIDE 32 mmol/L (21-31); CHLORIDE 96 mmol/L (97-110); CREATININE 0.87 mg/dl (0.44-1.00); GLUCOSE 130 mg/dl (70-220); POTASSIUM 3.8 mmol/L (3.5-5.1); SODIUM 140 mmol/L (135-144)
[2017-02-18] MEDS: FUROSEMIDE 40 MG INJ IV ×2 (08:00→12:12)
[2017-02-18] MEDS: GABAPENTIN 300 MG CAP PO ×3 (08:43→21:08)
[2017-02-18] MEDS: BACLOFEN 10 MG TAB PO ×4 (08:43→21:07)
[2017-02-18] MEDS: DULOXETINE 30 MG CAP DR PO ×2 (08:43→21:08)
[2017-02-18] MEDS: SENNA TAB PO ×2 (08:43→21:08)
[2017-02-18] MEDS: SPIRONOLACTONE 50 MG TAB PO (08:44)
[2017-02-18] MEDS: POTASSIUM CHLORIDE (SR) 20 MEQ TAB PO (08:44)
[2017-02-18] MEDS: METOLAZONE 5 MG TAB PO (08:45)
[2017-02-18] MEDS: MODAFINIL 200 MG TAB PO (08:47)
[2017-02-18] MEDS: SOD CHLORIDE 0.9% 1,000 ML IV (09:00)
[2017-02-18] MEDS: morphine (ER) 15 MG TAB PO ×3 (09:00→21:00)
[2017-02-18] MEDS: EXEMESTANE 25 MG TAB PO (09:39)
[2017-02-18] MEDS: METOCLOPRAMIDE 10 MG INJ IV ×2 (15:20→21:09)
[2017-02-18] MEDS: traZODone 50 MG TAB PO (21:08)
[2017-02-19] MEDS: HYDROmorphONE 0.2 MG/ML PCA IV ×5 (01:20→18:54)
[2017-02-19] MEDS: METOCLOPRAMIDE 5 MG TAB PO ×8 (03:00→21:00)
[2017-02-19] MEDS: SOD CHLORIDE 0.9% 1,000 ML IV (04:12)
[2017-02-19] MEDS: LORAZEPAM 2 MG INJ IV ×5 (04:12→23:57)
[2017-02-19] MEDS: ONDANSETRON 4 MG INJ IV ×5 (04:12→23:57)
[2017-02-19 05:59] LABS: ADD MAN DIFF? NO
[2017-02-19 06:10] LABS: BASOPHILS % 0.3 % (0.0-2.0); EOSINOPHILS # 0.3 10^3/ul (0.0-0.5); EOSINOPHILS % 2.9 % (0.0-7.0); HEMATOCRIT 28.6 % (37.0-47.0); HEMOGLOBIN 8.8 g/dl (12.0-16.0); LYMPHOCYTES # 2.2 10^3/ul (0.8-2.9); LYMPHOCYTES % 18.3 % (15.0-51.0); MEAN CORPUSCULAR HEMOGLOBIN 28.5 pg (29.0-33.0); MEAN CORPUSCULAR HGB CONC 30.8 g/dl (32.0-37.0); MEAN CORPUSCULAR VOLUME 92.6 fl (82.0-101.0); MEAN PLATELET VOLUME 11.5 fl (7.4-10.4); MONOCYTE # 1.2 10^3/ul (0.3-0.9); MONOCYTES % 10.3 % (0.0-11.0); NEUTROPHIL # 7.8 10^3/ul (1.6-7.5); NEUTROPHILS % 65.8 % (39.0-77.0); NUCLEATED RED BLOOD CELLS% 0.2 /100WBC (0.0-0.0); PLATELET COUNT 465 10^3/UL (140-415); RED BLOOD COUNT 3.09 10^6/ul (4.20-5.40); RED CELL DISTRIBUTION WIDTH 16.3 % (11.5-14.5)
[2017-02-19 06:10] LABS: WHITE BLOOD COUNT 11.9 10^3/ul (4.8-10.8)
[2017-02-19 06:59] LABS: ANION GAP 14 (8-16); BLOOD UREA NITROGEN 12 mg/dl (7-20); CALCIUM 8.6 mg/dl (8.4-10.2); CARBON DIOXIDE 31 mmol/L (21-31); CHLORIDE 98 mmol/L (97-110); GLUCOSE 99 mg/dl (70-220); SODIUM 139 mmol/L (135-144)
[2017-02-19 07:18] LABS: PHOSPHORUS 5.8 mg/dl (2.5-4.9)
[2017-02-19 07:18] LABS: MAGNESIUM 1.9 mg/dl (1.7-2.5)
[2017-02-19] MEDS: GABAPENTIN 300 MG CAP PO ×3 (08:49→21:05)
[2017-02-19] MEDS: DULOXETINE 30 MG CAP DR PO ×2 (08:49→21:05)
[2017-02-19] MEDS: SPIRONOLACTONE 50 MG TAB PO (08:49)
[2017-02-19] MEDS: SENNA TAB PO ×2 (08:49→21:05)
[2017-02-19] MEDS: BACLOFEN 10 MG TAB PO ×4 (08:50→21:05)
[2017-02-19] MEDS: EXEMESTANE 25 MG TAB PO (08:51)
[2017-02-19] MEDS: POTASSIUM CHLORIDE (SR) 20 MEQ TAB PO (08:51)
[2017-02-19] MEDS: morphine (ER) 15 MG TAB PO ×3 (08:53→21:00)
[2017-02-19] MEDS: METOLAZONE 5 MG TAB PO (08:53)
[2017-02-19] MEDS: FUROSEMIDE 40 MG INJ IV ×2 (09:00→12:58)
[2017-02-19] MEDS: MODAFINIL 200 MG TAB PO (09:00)
[2017-02-19] MEDS: traZODone 50 MG TAB PO (21:05)
[2017-02-19] MEDS: METOCLOPRAMIDE 10 MG INJ IV (21:09)
[2017-02-20] MEDS: HYDROmorphONE 0.2 MG/ML PCA IV ×7 (00:03→22:08)
[2017-02-20] MEDS: METOCLOPRAMIDE 5 MG TAB PO ×8 (03:00→21:00)
[2017-02-20] MEDS: LORAZEPAM 2 MG INJ IV ×5 (05:12→21:53)
[2017-02-20] MEDS: ONDANSETRON 4 MG INJ IV ×5 (05:13→21:53)
[2017-02-20] MEDS: BACLOFEN 10 MG TAB PO ×4 (09:00→20:58)
[2017-02-20] MEDS: SOD CHLORIDE 0.9% 1,000 ML IV (09:00)
[2017-02-20] MEDS: morphine (ER) 15 MG TAB PO ×3 (09:00→21:00)
[2017-02-20] MEDS: SENNA TAB PO ×2 (09:01→20:58)
[2017-02-20] MEDS: POTASSIUM CHLORIDE (SR) 20 MEQ TAB PO (09:01)
[2017-02-20] MEDS: MODAFINIL 200 MG TAB PO (09:02)
[2017-02-20] MEDS: GABAPENTIN 300 MG CAP PO ×3 (09:02→20:59)
[2017-02-20] MEDS: METOLAZONE 5 MG TAB PO (09:02)
[2017-02-20] MEDS: DULOXETINE 30 MG CAP DR PO ×2 (09:02→20:58)
[2017-02-20] MEDS: FUROSEMIDE 40 MG INJ IV ×2 (09:03→13:02)
[2017-02-20] MEDS: SPIRONOLACTONE 50 MG TAB PO (09:03)
[2017-02-20] MEDS: EXEMESTANE 25 MG TAB PO (09:19)
[2017-02-20] MEDS: traZODone 50 MG TAB PO (20:58)
[2017-02-20] MEDS: METOCLOPRAMIDE 10 MG INJ IV (21:04)
[2017-02-20] MEDS: HYDROmorphONE 2 MG/ML SYG IV (21:04)
[2017-02-21] MEDS: LORAZEPAM 2 MG INJ IV ×5 (01:49→23:56)
[2017-02-21] MEDS: ONDANSETRON 4 MG INJ IV ×5 (01:49→23:53)
[2017-02-21] MEDS: HYDROmorphONE 0.2 MG/ML PCA IV ×6 (02:10→20:57)
[2017-02-21] MEDS: METOCLOPRAMIDE 5 MG TAB PO ×9 (03:00→23:46)
[2017-02-21] MEDS: SOD CHLORIDE 0.9% 1,000 ML IV (06:19)
[2017-02-21] MEDS: FUROSEMIDE 40 MG INJ IV ×2 (08:00→13:00)
[2017-02-21] MEDS: morphine (ER) 15 MG TAB PO ×3 (09:00→21:00)
[2017-02-21] MEDS: DULOXETINE 30 MG CAP DR PO ×2 (09:10→20:53)
[2017-02-21] MEDS: SENNA TAB PO ×2 (09:11→20:54)
[2017-02-21] MEDS: METOLAZONE 5 MG TAB PO (09:11)
[2017-02-21] MEDS: SPIRONOLACTONE 50 MG TAB PO (09:11)
[2017-02-21] MEDS: GABAPENTIN 300 MG CAP PO ×3 (09:11→20:54)
[2017-02-21] MEDS: BACLOFEN 10 MG TAB PO ×4 (09:12→20:55)
[2017-02-21] MEDS: POTASSIUM CHLORIDE (SR) 20 MEQ TAB PO (09:12)
[2017-02-21] MEDS: MODAFINIL 200 MG TAB PO (09:12)
[2017-02-21] MEDS: EXEMESTANE 25 MG TAB PO (09:33)
[2017-02-21] MEDS: traZODone 50 MG TAB PO (20:54)
[2017-02-22] MEDS: HYDROmorphONE 0.2 MG/ML PCA IV ×6 (00:06→21:10)
[2017-02-22] MEDS: METOCLOPRAMIDE 5 MG TAB PO ×8 (02:04→23:36)
[2017-02-22] MEDS: FUROSEMIDE 40 MG INJ IV ×3 (08:00→15:23)
[2017-02-22] MEDS: morphine (ER) 15 MG TAB PO ×3 (09:00→21:00)
[2017-02-22] MEDS: METOLAZONE 5 MG TAB PO ×2 (09:00→15:22)
[2017-02-22] MEDS: SOD CHLORIDE 0.9% 1,000 ML IV ×2 (09:00→21:12)
[2017-02-22] MEDS: SPIRONOLACTONE 50 MG TAB PO ×2 (09:00→15:23)
[2017-02-22] MEDS: ONDANSETRON 4 MG INJ IV ×4 (09:21→23:33)
[2017-02-22] MEDS: LORAZEPAM 2 MG INJ IV ×4 (09:21→23:35)
[2017-02-22] MEDS: SENNA TAB PO ×2 (09:25→21:00)
[2017-02-22] MEDS: GABAPENTIN 300 MG CAP PO ×3 (09:25→21:00)
[2017-02-22] MEDS: DULOXETINE 30 MG CAP DR PO ×2 (09:25→20:59)
[2017-02-22] MEDS: POTASSIUM CHLORIDE (SR) 20 MEQ TAB PO (09:26)
[2017-02-22] MEDS: BACLOFEN 10 MG TAB PO ×4 (09:26→21:00)
[2017-02-22] MEDS: MODAFINIL 200 MG TAB PO (09:26)
[2017-02-22] MEDS: EXEMESTANE 25 MG TAB PO (09:36)
[2017-02-22] MEDS: HYDROmorphONE 2 MG/ML SYG IV (19:32)
[2017-02-22] MEDS: traZODone 50 MG TAB PO (21:00)
[2017-02-23] MEDS: HYDROmorphONE 2 MG/ML SYG IV (00:20)
[2017-02-23] MEDS: HYDROmorphONE 0.2 MG/ML PCA IV ×6 (01:31→23:00)
[2017-02-23] MEDS: METOCLOPRAMIDE 5 MG TAB PO ×7 (03:00→20:52)
[2017-02-23 05:22] LABS: WHITE BLOOD COUNT 13.2 10^3/ul (4.8-10.8)
[2017-02-23 05:22] LABS: ABNORMAL IP MESSAGE 1; ADD MAN DIFF? NO; BASOPHIL # 0.1 10^3/ul (0.0-0.1); BASOPHILS % 0.5 % (0.0-2.0); EOSINOPHILS # 0.5 10^3/ul (0.0-0.5); EOSINOPHILS % 3.5 % (0.0-7.0); HEMATOCRIT 30.4 % (37.0-47.0); HEMOGLOBIN 9.5 g/dl (12.0-16.0); LYMPHOCYTES # 2.4 10^3/ul (0.8-2.9); LYMPHOCYTES % 18.5 % (15.0-51.0); MEAN CORPUSCULAR HEMOGLOBIN 28.3 pg (29.0-33.0); MEAN CORPUSCULAR HGB CONC 31.3 g/dl (32.0-37.0); MEAN CORPUSCULAR VOLUME 90.5 fl (82.0-101.0); MEAN PLATELET VOLUME 11.1 fl (7.4-10.4); MONOCYTE # 1.7 10^3/ul (0.3-0.9); MONOCYTES % 12.6 % (0.0-11.0); NEUTROPHIL # 8.4 10^3/ul (1.6-7.5); NEUTROPHILS % 63.7 % (39.0-77.0); PLATELET COUNT 479 10^3/UL (140-415); RED BLOOD COUNT 3.36 10^6/ul (4.20-5.40); RED CELL DISTRIBUTION WIDTH 16.1 % (11.5-14.5)
[2017-02-23 05:34] LABS: POSITIVE DIFF @See below
[2017-02-23 05:50] LABS: ANION GAP 12 (8-16); BLOOD UREA NITROGEN 18 mg/dl (7-20); CALCIUM 9.5 mg/dl (8.4-10.2); CARBON DIOXIDE 34 mmol/L (21-31); CHLORIDE 94 mmol/L (97-110); CREATININE 0.95 mg/dl (0.44-1.00); GLUCOSE 100 mg/dl (70-220); MAGNESIUM 1.9 mg/dl (1.7-2.5); PHOSPHORUS 6.2 mg/dl (2.5-4.9); POTASSIUM 3.4 mmol/L (3.5-5.1); SODIUM 137 mmol/L (135-144)
[2017-02-23] MEDS: FUROSEMIDE 40 MG INJ IV ×2 (08:00→12:51)
[2017-02-23] MEDS: GABAPENTIN 300 MG CAP PO ×3 (08:24→20:51)
[2017-02-23] MEDS: POTASSIUM CHLORIDE (SR) 20 MEQ TAB PO (08:25)
[2017-02-23] MEDS: MODAFINIL 200 MG TAB PO (08:25)
[2017-02-23] MEDS: DULOXETINE 30 MG CAP DR PO ×2 (08:25→20:50)
[2017-02-23] MEDS: BACLOFEN 10 MG TAB PO ×4 (08:26→20:50)
[2017-02-23] MEDS: METOLAZONE 5 MG TAB PO (08:27)
[2017-02-23] MEDS: SENNA TAB PO ×2 (08:27→20:51)
[2017-02-23] MEDS: SPIRONOLACTONE 50 MG TAB PO (08:28)
[2017-02-23] MEDS: morphine (ER) 15 MG TAB PO ×3 (08:29→20:51)
[2017-02-23] MEDS: EXEMESTANE 25 MG TAB PO (08:48)
[2017-02-23] MEDS: ONDANSETRON 4 MG INJ IV ×3 (08:51→17:53)
[2017-02-23] MEDS: LORAZEPAM 2 MG INJ IV ×3 (08:51→17:53)
[2017-02-23] MEDS: traZODone 50 MG TAB PO (20:51)
[2017-02-23] MEDS: METOCLOPRAMIDE 10 MG INJ IV (20:56)
[2017-02-24] MEDS: ONDANSETRON 4 MG INJ IV ×4 (01:20→18:07)
[2017-02-24] MEDS: LORAZEPAM 2 MG INJ IV ×4 (01:20→18:07)
[2017-02-24] MEDS: METOCLOPRAMIDE 5 MG TAB PO ×9 (03:00→23:13)
[2017-02-24] MEDS: HYDROmorphONE 0.2 MG/ML PCA IV ×6 (03:18→22:31)
[2017-02-24] MEDS: morphine (ER) 15 MG TAB PO ×3 (09:00→19:45)
[2017-02-24] MEDS: METOLAZONE 5 MG TAB PO (09:00)
[2017-02-24] MEDS: SOD CHLORIDE 0.9% 1,000 ML IV (09:00)
[2017-02-24] MEDS: MODAFINIL 200 MG TAB PO (09:21)
[2017-02-24] MEDS: SENNA TAB PO ×2 (09:21→19:47)
[2017-02-24] MEDS: POTASSIUM CHLORIDE (SR) 20 MEQ TAB PO (09:21)
[2017-02-24] MEDS: BACLOFEN 10 MG TAB PO ×4 (09:22→19:46)
[2017-02-24] MEDS: GABAPENTIN 300 MG CAP PO ×3 (09:22→19:45)
[2017-02-24] MEDS: DULOXETINE 30 MG CAP DR PO ×2 (09:23→19:45)
[2017-02-24] MEDS: SPIRONOLACTONE 50 MG TAB PO (09:23)
[2017-02-24] MEDS: EXEMESTANE 25 MG TAB PO (09:29)
[2017-02-24] MEDS: FUROSEMIDE 40 MG INJ IV ×2 (10:47→14:14)
[2017-02-24] MEDS: traZODone 50 MG TAB PO (19:46)
[2017-02-25] MEDS: METOCLOPRAMIDE 5 MG TAB PO ×7 (03:00→21:00)
[2017-02-25] MEDS: HYDROmorphONE 0.2 MG/ML PCA IV ×6 (05:09→20:58)
[2017-02-25] MEDS: SOD CHLORIDE 0.9% 1,000 ML IV (06:35)
[2017-02-25] MEDS: METOLAZONE 5 MG TAB PO (09:00)
[2017-02-25] MEDS: morphine (ER) 15 MG TAB PO ×3 (09:00→20:45)
[2017-02-25] MEDS: GABAPENTIN 300 MG CAP PO ×3 (09:08→20:41)
[2017-02-25] MEDS: BACLOFEN 10 MG TAB PO ×4 (09:08→20:41)
[2017-02-25] MEDS: POTASSIUM CHLORIDE (SR) 20 MEQ TAB PO (09:08)
[2017-02-25] MEDS: DULOXETINE 30 MG CAP DR PO ×2 (09:08→20:41)
[2017-02-25] MEDS: MODAFINIL 200 MG TAB PO (09:08)
[2017-02-25] MEDS: SENNA TAB PO ×2 (09:08→20:41)
[2017-02-25] MEDS: ONDANSETRON 4 MG INJ IV ×3 (09:09→17:44)
[2017-02-25] MEDS: EXEMESTANE 25 MG TAB PO (09:19)
[2017-02-25] MEDS: FUROSEMIDE 40 MG INJ IV ×2 (10:54→13:00)
[2017-02-25] MEDS: SPIRONOLACTONE 50 MG TAB PO (10:56)
[2017-02-25] MEDS: HYDROmorphONE 2 MG/ML SYG IV (12:24)
[2017-02-25] MEDS: LORAZEPAM 2 MG INJ IV (13:04)
[2017-02-25] MEDS: HEPARIN (100 UNITS/ML) 5 ML SYG CATHETER (20:00)
[2017-02-25] MEDS: traZODone 50 MG TAB PO (20:41)
[2017-02-26] MEDS: METOCLOPRAMIDE 5 MG TAB PO ×5 (03:00→11:34)
[2017-02-26] MEDS: FUROSEMIDE 40 MG INJ IV (08:00)
[2017-02-26] MEDS: morphine (ER) 15 MG TAB PO (09:00)
[2017-02-26] MEDS: SOD CHLORIDE 0.9% 1,000 ML IV (09:00)
[2017-02-26] MEDS: LORAZEPAM 2 MG INJ IV (09:04)
[2017-02-26] MEDS: ONDANSETRON 4 MG INJ IV (09:06)
[2017-02-26] MEDS: POTASSIUM CHLORIDE (SR) 20 MEQ TAB PO (09:09)
[2017-02-26] MEDS: GABAPENTIN 300 MG CAP PO (09:10)
[2017-02-26] MEDS: BACLOFEN 10 MG TAB PO (09:10)
[2017-02-26] MEDS: DULOXETINE 30 MG CAP DR PO (09:11)
[2017-02-26] MEDS: METOLAZONE 5 MG TAB PO (09:11)
[2017-02-26] MEDS: SENNA TAB PO (09:12)
[2017-02-26] MEDS: SPIRONOLACTONE 50 MG TAB PO (09:12)
[2017-02-26] MEDS: EXEMESTANE 25 MG TAB PO (09:17)
[2017-02-26] MEDS: MODAFINIL 200 MG TAB PO (09:27)
== END 2017-02-26 12:25 | disposition hospice, home (50) | DRG 543 ==
LOC: MS4 23:58 → MS1 01-21 14:40 → E/R 18:49 → MS1 01-18 19:15 → MS4 01-15 01:44
PROC: 30233N1 Transfusion of Nonautologous Red Blood Cells into Peripheral Vein, Percutaneous Approach (ICD-10-PCS; principal; 2017-01-15)
PROC: 3E03305 Introduction of Other Antineoplastic into Peripheral Vein, Percutaneous Approach (ICD-10-PCS; 2017-01-21)
DX: C79.51 Secondary malignant neoplasm of bone (principal); C79.89 Secondary malignant neoplasm of other specified sites; N17.9 Acute kidney failure, unspecified; E87.0 Hyperosmolality and hypernatremia; C85.95 Non-Hodgkin lymphoma, unspecified, lymph nodes of inguinal region and lower limb; E83.52 Hypercalcemia; L03.115 Cellulitis of right lower limb; F11.20 Opioid dependence, uncomplicated; L03.116 Cellulitis of left lower limb; M84.48XA Pathological fracture, other site, initial encounter for fracture; E83.42 Hypomagnesemia; D64.81 Anemia due to antineoplastic chemotherapy; D63.1 Anemia in chronic kidney disease; I12.9 Hypertensive chronic kidney disease with stage 1 through stage 4 chronic kidney disease, or unspecified chronic kidney disease; N18.9 Chronic kidney disease, unspecified; D63.0 Anemia in neoplastic disease; G89.3 Neoplasm related pain (acute) (chronic); E83.9 Disorder of mineral metabolism, unspecified; F32.9 Major depressive disorder, single episode, unspecified; F41.9 Anxiety disorder, unspecified; F90.9 Attention-deficit hyperactivity disorder, unspecified type; M62.81 Muscle weakness (generalized); R60.0 Localized edema; Z88.0 Allergy status to penicillin; C79.52 Secondary malignant neoplasm of bone marrow; Z91.018 Allergy to other foods; Z92.21 Personal history of antineoplastic chemotherapy; Z17.0 Estrogen receptor positive status [ER+]; Z91.013 Allergy to seafood; Z90.13 Acquired absence of bilateral breasts and nipples; Z90.81 Acquired absence of spleen; Z95.828 Presence of other vascular implants and grafts; Z85.3 Personal history of malignant neoplasm of breast
CPT/HCPCS: 36415; 36430; 36600; 58340; 71010; 72100; 72131; 80048; 80053; 80306; 80307; 81001; 81003; 82040; 82803; 83735; 84100; 84484; 85014; 85018; 85025; 85610; 85730; 86300; 86850; 86900; 86901; 86920; 87081; 87086; 93005; 93970; 96374; 97110; 97116; 97162; 97530; 99291-25; J1940; J2430